=== PATIENT | male | born 1970 | race Caucasian/White ===

== ENCOUNTER 2017-03-28 09:37 | Inpatient (IN) | payer BC ==
[2017-03-28] MEDS ORDERED: SODIUM CHLORIDE 0.9% 1,000 ML IV STA (09:57)
--- NOTE | 2017-03-28 10:00 | ED ---
General Adult HPI - General Chief complaint: Syncope Stated complaint: Syncope Time Seen by Provider: 03/28/17 09:41 Source: patient, EMS, RN notes reviewed Mode of arrival: EMS Limitations: no limitations - History of Present Illness Initial comments: Patient is a pleasant 46-year-old male presenting to the emergency department following syncopal episode. Episode occurred just prior to arrival. Patient was at work. Patient was leaning over working on a part for 7 or 8 minutes. Patient did get up and felt lightheaded and then had a coworker catch him. Patient believes she may have passed out for a second or 2. No injury. Patient is symptom-free at this time. No chest pain. No dyspnea. No confusion. No headache. No weakness. Patient has had some near syncopal episodes previously however has not previously passed out. - Related Data Home Medications Medication Instructions Recorded Confirmed Albuterol Inhaler [Ventolin Hfa 1 - 2 puff INHALATION RT-Q6H PRN 03/28/17 Inhaler] Aspirin 81 mg PO ONCE PRN 03/28/17 03/28/17 Allergies Allergy/AdvReac Type Severity Reaction Status Date / Time Penicillins Allergy Anaphylaxis Verified 03/28/17 09:59 Review of Systems ROS Statement: Those systems with pertinent positive or pertinent negative responses have been documented in the HPI. ROS Other: All systems not noted in ROS Statement are negative. Constitutional: Denies: fever Eyes: Denies: eye pain ENT: Denies: ear pain Respiratory: Denies: cough, dyspnea Cardiovascular: Denies: chest pain Endocrine: Denies: fatigue Gastrointestinal: Denies: abdominal pain Genitourinary: Denies: dysuria Musculoskeletal: Denies: back pain Skin: Denies: rash Neurological: Denies: headache, weakness, paresthesias, confusion Past Medical History Past Medical History: COPD Additional Past Medical History / Comment(s): kidney disease History of Any Multi-Drug Resistant Organisms: None Reported Past Surgical History: No Surgical Hx Reported Past Psychological History: No Psychological Hx Reported Smoking Status: Current every day smoker Past Alcohol Use History: None Reported Past Drug Use History: Marijuana General Exam Limitations: no limitations General appearance: alert, in no apparent distress Head exam: Present: atraumatic Eye exam: Present: normal appearance, PERRL, EOMI. Absent: nystagmus ENT exam: Present: normal oropharynx Neck exam: Present: normal inspection Respiratory exam: Present: normal lung sounds bilaterally Cardiovascular Exam: Present: regular rate, normal rhythm Expanded Peripheral pulses: 2+: Radial (R), Radial (L), Posterior Tibialis (R), Posterior Tibialis (L) GI/Abdominal exam: Present: soft. Absent: tenderness Extremities exam: Present: normal inspection. Absent: pedal edema, calf tenderness Neurological exam: Present: alert, oriented X3, CN II-XII intact. Absent: motor sensory deficit Expanded Neurological exam: Present: protecting the airway Patient oriented to: Present: person, place, time Speech: Present: fluid speech Cranial nerves: EOM's Intact: Normal, Facial Sensation: Normal Sensory exam: Upper Extremity Light Touch: Normal, Lower Extremity Light Touch: Normal Motor strength exam: RUE: 5, LUE: 5, RLE: 5, LLE: 5 Eye Response: (4) open spontaneously Motor Response: (6) obeys commands Verbal Response: (5) oriented Psychiatric exam: Present: normal affect, normal mood Skin exam: Present: normal color Course Vital Signs 03/28/17 03/28/17 03/28/17 09:40 10:45 11:45 Temperature 97 F L Pulse Rate 79 84 78 Respiratory 16 16 16 Rate Blood Pressure 135/73 119/78 124/58 O2 Sat by Pulse 97 97 99 Oximetry EKG Findings - EKG Comments: EKG Findings:: Normal sinus rhythm 76. HI 168. QRS 92. QT 354. QTC 398. Right axis. Normal QRS. No acute ST change. Medical Decision Making - Medical Decision Making Patient reevaluated and symptom-free. Patient and family updated on results and plan. Patient does admit that he does have a history of polycystic kidney disease. Patient also states that there was a question of mass near the kidney previously that was being watched by Dr. Coon however this has not been evaluated in years. Case was discussed in detail with Dr. Main, who will admit for Dr. Escobar. Oncology will be consult. - Lab Data Result diagrams: 03/28/17 09:50 03/28/17 09:50 Lab Results 03/28/17 03/28/17 03/28/17 Range/Units 09:50 09:50 09:50 WBC 26.4 H* (3.8-10.6) k/uL RBC 5.19 (4.30-5.90) m/uL Hgb 15.2 (13.0-17.5) gm/dL Hct 47.0 (39.0-53.0) % MCV 90.7 (80.0-100.0) fL MCH 29.4 (25.0-35.0) pg MCHC 32.4 (31.0-37.0) g/dL RDW 15.9 H (11.5-15.5) % Plt Count 356 (150-450) k/uL Neutrophils % 76 % Lymphocytes % 16 % Monocytes % 5 % Eosinophils % 1 % Basophils % 1 % Neutrophils # 20.2 H (1.3-7.7) k/uL Lymphocytes # 4.2 (1.0-4.8) k/uL Monocytes # 1.3 H (0-1.0) k/uL Eosinophils # 0.3 (0-0.7) k/uL Basophils # 0.1 (0-0.2) k/uL PT (9.0-12.0) sec INR (<1.2) APTT (22.0-30.0) sec D-Dimer (<0.60) mg/L FEU Sodium 141 (137-145) mmol/L Potassium 4.7 (3.5-5.1) mmol/L Chloride 105 (98-107) mmol/L Carbon Dioxide 28 (22-30) mmol/L Anion Gap 8 mmol/L BUN 11 (9-20) mg/dL Creatinine 0.99 (0.66-1.25) mg/dL Est GFR (MDRD) Af Amer >60 (>60 ml/min/1.73 sqM) Est GFR (MDRD) Non-Af >60 (>60 ml/min/1.73 sqM) Glucose 141 H (74-99) mg/dL Calcium 9.9 (8.4-10.2) mg/dL Total Bilirubin 0.8 (0.2-1.3) mg/dL AST 26 (17-59) U/L ALT 33 (21-72) U/L Alkaline Phosphatase 53 (38-126) U/L Total Creatine Kinase 70 (55-170) U/L CK-MB (CK-2) 0.9 (0.0-2.4) ng/mL CK-MB (CK-2) Rel Index 1.3 Troponin I <0.012 (0.000-0.034) ng/mL Total Protein 6.5 (6.3-8.2) g/dL Albumin 4.2 (3.5-5.0) g/dL Urine Color Urine Appearance (Clear) Urine pH (5.0-8.0) Ur Specific [place] (1.001-1.035) Urine Protein (Negative) Urine Glucose (UA) (Negative) Urine Ketones (Negative) Urine Blood (Negative) Urine Nitrite (Negative) Urine Bilirubin (Negative) Urine Urobilinogen (<2.0) mg/dL Ur Leukocyte Esterase (Negative) 03/28/17 03/28/17 Range/Units 09:50 11:15 WBC (3.8-10.6) k/uL RBC (4.30-5.90) m/uL Hgb (13.0-17.5) gm/dL Hct (39.0-53.0) % MCV (80.0-100.0) fL MCH (25.0-35.0) pg MCHC (31.0-37.0) g/dL RDW (11.5-15.5) % Plt Count (150-450) k/uL Neutrophils % % Lymphocytes % % Monocytes % % Eosinophils % % Basophils % % Neutrophils # (1.3-7.7) k/uL Lymphocytes # (1.0-4.8) k/uL Monocytes # (0-1.0) k/uL Eosinophils # (0-0.7) k/uL Basophils # (0-0.2) k/uL PT 9.8 (9.0-12.0) sec INR 1.0 (<1.2) APTT 23.1 (22.0-30.0) sec D-Dimer 0.74 H (<0.60) mg/L FEU Sodium (137-145) mmol/L Potassium (3.5-5.1) mmol/L Chloride (98-107) mmol/L Carbon Dioxide (22-30) mmol/L Anion Gap mmol/L BUN (9-20) mg/dL Creatinine (0.66-1.25) mg/dL Est GFR (MDRD) Af Amer (>60 ml/min/1.73 sqM) Est GFR (MDRD) Non-Af (>60 ml/min/1.73 sqM) Glucose (74-99) mg/dL Calcium (8.4-10.2) mg/dL Total Bilirubin (0.2-1.3) mg/dL AST (17-59) U/L ALT (21-72) U/L Alkaline Phosphatase (38-126) U/L Total Creatine Kinase (55-170) U/L CK-MB (CK-2) (0.0-2.4) ng/mL CK-MB (CK-2) Rel Index Troponin I (0.000-0.034) ng/mL Total Protein (6.3-8.2) g/dL Albumin (3.5-5.0) g/dL Urine Color Yellow Urine Appearance Clear (Clear) Urine pH 6.5 (5.0-8.0) Ur Specific [place] 1.004 (1.001-1.035) Urine Protein Negative (Negative) Urine Glucose (UA) Negative (Negative) Urine Ketones Negative (Negative) Urine Blood Negative (Negative) Urine Nitrite Negative (Negative) Urine Bilirubin Negative (Negative) Urine Urobilinogen <2.0 (<2.0) mg/dL Ur Leukocyte Esterase Negative (Negative) - Radiology Data Radiology results: report reviewed (Computed tomography scan of the brain reveals no acute abnormality. Computed tomography scan of the chest shows no pulmonary embolism. Lungs are clear. There is a retroperitoneal mass.), image reviewed (Chest x-ray has concern for developing right infrahilar infiltrate. Small right effusion.) Disposition Clinical Impression: Syncope, Retroperitoneal mass Disposition: ADMITTED IP TO THIS HOSP Referrals: Abby Escobar MD [Primary Care Provider] - 1-2 days Decision Time: 11:59
[2017-03-28 10:15] LABS: Basophils # (A) 0.1 k/uL (0-0.2); Basophils % (A) 1 %; Eosinophils # (A) 0.3 k/uL (0-0.7); Eosinophils % (A) 1 %; HGB 15.2 gm/dL (13.0-17.5); Lymphocytes # (A) 4.2 k/uL (1.0-4.8); Lymphocytes % (A) 16 %; MCH 29.4 pg (25.0-35.0); MCHC 32.4 g/dL (31.0-37.0); MCV 90.7 fL (80.0-100.0); Mean Platelet Volume 6.6; Monocytes # (A) 1.3 k/uL (0-1.0); Monocytes % (A) 5 %; Neutrophils # (A) 20.2 k/uL (1.3-7.7); Neutrophils % (A) 76 %; Platelet Count 356 k/uL (150-450); RBC 5.19 m/uL (4.30-5.90); RDW 15.9 % (11.5-15.5)
--- NOTE | 2017-03-28 10:22 | CT ---
EXAMINATION TYPE: CT brain wo con DATE OF EXAM: 03/28/2017 COMPARISON: NONE HISTORY: Syncope, dizziness CT DLP: 1036 mGycm. Automated Exposure Control for Dose Reduction was Utilized. TECHNIQUE: CT scan of the head is performed without contrast. FINDINGS: There is no acute intracranial hemorrhage, mass effect, or midline shift identified. The ventricles and sulci are within normal limits in size. The globes are intact. Old fracture deformit y of the lamina Propecia on the left is appreciated. Mild mucosal thickening within the ethmoid sinus es are present. Remaining visualized paranasal sinuses are well aerated. IMPRESSION: No acute intracranial hemorrhage, mass effect, or midline shift is seen. No acute intrac ranial process.
[2017-03-28 10:24] LABS: WBC 26.4 k/uL (3.8-10.6)
--- NOTE | 2017-03-28 10:24 | XR ---
EXAMINATION TYPE: XR chest 2V DATE OF EXAM: 03/28/2017 COMPARISON: NONE HISTORY: Chest pain TECHNIQUE: Frontal and lateral views of the chest are obtained. FINDINGS: Hyperinflation compatible with COPD. Linear densities right mid and lower lung zones may reflect atel ectasis. Increased density right infrahilar region may reflect developing infiltrate. Blunting right costophrenic angle. Small effusions not excluded The cardiac silhouette size is within normal limits. The osseous structures are grossly intact. IMPRESSION: 1. Developing infiltrate right infrahilar region difficult to exclude. Small right-sided pleural eff usion.
[2017-03-28 10:26] LABS: ALT 33 U/L (21-72); AST 26 U/L (17-59); Albumin 4.2 g/dL (3.5-5.0); Alkaline Phosphatase 53 U/L (38-126); Anion Gap 8 mmol/L; Blood Urea Nitrogen 11 mg/dL (9-20); Calcium 9.9 mg/dL (8.4-10.2); Carbon Dioxide 28 mmol/L (22-30); Chloride 105 mmol/L (98-107); Glucose 141 mg/dL (74-99); Potassium 4.7 mmol/L (3.5-5.1); Sodium 141 mmol/L (137-145); Total Bilirubin 0.8 mg/dL (0.2-1.3); Total Protein 6.5 g/dL (6.3-8.2)
[2017-03-28 10:28] LABS: D-Dimer 0.74 mg/L FEU (<0.60); Partial Thromboplastin Time 23.1 sec (22.0-30.0); Prothrombin Time 9.8 sec (9.0-12.0)
[2017-03-28 10:34] LABS: Creatine Kinase 70 U/L (55-170)
[2017-03-28 10:47] LABS: Creatine Kinase MB 0.9 ng/mL (0.0-2.4); Troponin I <0.012 ng/mL (0.000-0.034)
[2017-03-28] MEDS ORDERED: RX INFO: IV CONTRAST WAS GIVEN 1 EACH MISC MISCELLANE PRN (10:54)
[2017-03-28 11:40] LABS: Appearance,Urine Clear (Clear); Bilirubin,Urine Negative (Negative); Blood,Urine Negative (Negative); Color,Urine Yellow; Glucose,Urine (UA) Negative (Negative); Ketones,Urine Negative (Negative); Leukocyte Esterase,Urine Negative (Negative); Nitrite,Urine Negative (Negative); PH, Urine 6.5 (5.0-8.0); Protein,Urine Negative (Negative); Specific Gravity,Urine 1.004 (1.001-1.035); Urobilinogen,Urine <2.0 mg/dL (<2.0)
--- NOTE | 2017-03-28 11:47 | CT ---
EXAMINATION TYPE: CT angio chest DATE OF EXAM: 03/28/2017 COMPARISON: NONE HISTORY: Syncope, elevated d dimer CT DLP: 524 mGycm. Automated Exposure Control for Dose Reduction was Utilized. CONTRAST: CTA scan of the thorax is performed with IV Contrast, patient injected with 100 mL of Omnipaque 350, pulmonary embolism protocol. MIP Images are created on CT scanner and reviewed. FINDINGS: LUNGS: The lungs are grossly clear, there is no concerning parenchymal mass or nodule identified. Ple ural parenchymal scarring is seen on the right as well as posterior apical pleural thickening. Mild p araseptal emphysematous changes are most exaggerated in the lung apices. Multifocal pleural parenchym al scarring is seen on the right. There is no pleural effusion or pneumothorax seen. The tracheobron chial tree is patent. Calcified pleural plaque is seen along the right hemidiaphragm and anterior lat erally of the pleural lining the right middle lobe. MEDIASTINUM: There is satisfactory enhancement of the pulmonary artery and its branches, there is no CT evidence for pulmonary embolism. There are no greater than 1 cm hilar or mediastinal lymph nodes. No cardiomegaly or pericardial effusion is seen. Small diaphragmatic hernia is noted on the right with the diaphragmatic rent measuring 9 mm. OTHER: There is a retroperitoneal soft tissue attenuated mass measuring 3.6 x 4.2 cm in transverse by anterior posterior dimension, incompletely seen on coronal images to assess craniocaudal dimension. This does not appear to be contiguous with the kidney or within the adrenal gland, however the full e xtent is not visualized on this could be exophytically arising from the kidney. Focal sclerosis is se en in the inferior endplate of T9 anteriorly which may be degenerative in nature. IMPRESSION: 1. No evidence of pulmonary embolism. 2. Solid left-sided retroperitoneal mass that is incompletely visualized. Although this appears separ ate from the adrenal gland and likely separate from the kidney this could be exophytically arising fr om the kidney. Further characterization with dynamic contrast enhanced three-phase CT abdomen or MR i s recommended on a nonemergent basis. Considerations are for primary retroperitoneal lesion such as d edifferentiated liposarcoma, malignant fibrous histiocytoma, or given the patient's pleural parenchym al calcifications mesenteric mesothelioma. Additional considerations are for metastasis and lymphoma. However, if this does arise from the kidney differential would change to renal cell carcinoma and on cocytoma. 3. Moderate paraseptal emphysematous changes.
[2017-03-28] MEDS ORDERED: NALOXONE 0.4 MG/ML 1 ML VIAL IV PRN (12:00)
--- NOTE | 2017-03-28 13:18 | P.HPIM ---
History of Present Illness H&P Date: 03/28/17 Chief Complaint: Syncope lightheadedness The patient is a 46-year-old male the long known history of tobacco use, COPD and polycystic kidney disease who presents to the ER with chief complaint of lightheadedness and passing out. apparently the patient was at work and began feeling dizzy and lightheaded. Patient was leaning over working on a part for 7 or 8 minutes. Patient did get up and felt lightheaded and then had a coworker catch him. Patient believes she may have lost consciousness for up to 2 seconds. He denied any chest pain, palpitations or any other precipitating factors. He denies any fall or head trauma, he denies any recent illnesses, denies fevers chills night sweats, denies any weight change or loss of appetite. Apparently his had other similar symptoms but never anything this severe, he does report some associated left vision changes reported to be blurriness. He denies any chest pain or lower extremity swelling. In the ER the patient had a CTA of his chest that was negative for pulmonary embolism, but there is a solid left retroperitoneal mass. The patient is reports that the patient has been poorly compliant with follow-up in Dr. Coon's office where he was supposed to follow-up with over 2 years ago for his polycystic kidney disease. Patient was also noted to have a significant leukocytosis of 26.4 Review of Systems All other 14 (it negative except per HPI Past Medical History Past Medical History: COPD Additional Past Medical History / Comment(s): kidney disease History of Any Multi-Drug Resistant Organisms: None Reported Past Surgical History: No Surgical Hx Reported Past Psychological History: No Psychological Hx Reported Smoking Status: Current every day smoker Past Alcohol Use History: None Reported Past Drug Use History: Marijuana - Past Family History Father Family Medical History: Diabetes Mellitus Additional Family Medical History / Comment(s): "alcoholic" Mother Family Medical History: Congestive Heart Failure (CHF), COPD, Diabetes Mellitus , Renal Disease Additional Family Medical History / Comment(s): "high white count chronic", chronic uti, sleep apnea Sister(s) Family Medical History: Coronary Artery Disease (CAD) Medications and Allergies Home Medications Medication Instructions Recorded Confirmed Type Albuterol Inhaler [Ventolin Hfa 1 - 2 puff INHALATION RT-Q6H PRN 03/28/17 History Inhaler] Aspirin 81 mg PO ONCE PRN 03/28/17 03/28/17 History Allergies Allergy/AdvReac Type Severity Reaction Status Date / Time Penicillins Allergy Anaphylaxis Verified 03/28/17 09:59 Physical Exam Vitals: Vital Signs Temp Pulse Resp BP Pulse Ox 03/28/17 11:45 78 16 124/58 99 03/28/17 10:45 84 16 119/78 97 03/28/17 09:40 97 F L 79 16 135/73 97 Intake and Output 03/27/17 03/28/17 03/28/17 22:59 06:59 14:59 Other: Weight 74.843 kg Patient Weight 03/29/17 06:59 Weight 74.843 kg Constitutional: No acute distress, conversant, pleasant Eyes: Anicteric sclerae, moist conjunctiva, no lid-lag, PERRLA ENMT: NC/AT,Oropharynx clear, no erythema, exudates Neck:Supple, FROM, no masses, or JVD, No carotid bruits; No thyromegaly Lungs: Clear to auscultation, Clear to percussion, Normal respiratory effort, no accessory muscle use Cardiovascular: Heart regular in rate and rhythm, No murmurs, gallops, or rubs no peripheral edema Abdominal: Soft Nontender, nom distended, no guarding, no rebound or rigidity, Normoactive bowel sounds No hepatomegaly, No splenomegaly, No palpable mass No abdominal wall hernia noted Skin: Normal temperature, tone, texture, turgor, No induration No subcutaneous nodules, No rash, lesions, No ulcers Extremities:No digital cyanosis No clubbing, Pedal pulses intact and symmetrical Radial pulses intact and symmetrical Normal gait and station, No calf tenderness Psychiatric: Alert and oriented to person, place and time, Appropriate affect Intact judgement Neuro: Muscles Strength 5/5 in all 4 extremities, Sensation to light touch grossly present throughout, Cranial nerves II-XII grossly intact. No focal sensory deficits Results CBC & Chem 7: 03/28/17 09:50 03/28/17 09:50 Labs: Abnormal Lab Results - Last 24 Hours (Table) 03/28/17 03/28/17 03/28/17 Range/Units 09:50 09:50 09:50 WBC 26.4 H* (3.8-10.6) k/uL RDW 15.9 H (11.5-15.5) % Neutrophils # 20.2 H (1.3-7.7) k/uL Monocytes # 1.3 H (0-1.0) k/uL D-Dimer 0.74 H (<0.60) mg/L FEU Glucose 141 H (74-99) mg/dL Assessment and Plan (1) Syncope Current Visit: Yes Status: Acute Code(s): R55 - SYNCOPE AND COLLAPSE SNOMED Code(s): 767880037 (2) Leukocytosis Current Visit: Yes Status: Acute Code(s): D72.829 - ELEVATED WHITE BLOOD CELL COUNT, UNSPECIFIED SNOMED Code(s): 388681032 (3) COPD (chronic obstructive pulmonary disease) Current Visit: Yes Status: Acute Code(s): J44.9 - CHRONIC OBSTRUCTIVE PULMONARY DISEASE, UNSPECIFIED SNOMED Code(s): 25731232 (4) Retroperitoneal mass Current Visit: Yes Status: Acute Code(s): R19.00 - INTRA-ABD AND PELVIC SWELLING, MASS AND LUMP, UNSP SITE SNOMED Code(s): 78174408 (5) Smoking addiction Current Visit: Yes Status: Acute Code(s): F17.200 - NICOTINE DEPENDENCE, UNSPECIFIED, UNCOMPLICATED SNOMED Code(s): 500996278 (6) Polycystic kidney disease Current Visit: Yes Status: Acute Code(s): Q61.3 - POLYCYSTIC KIDNEY, UNSPECIFIED SNOMED Code(s): 07647015 Plan: The patient is admitted for workup of syncopal episode anticipated greater than 2 midnight stay, as a patient also has a significant pronounced leukocytosis of 26.4 with retroperitoneal mass which is concerning for possible underlying malignancy. Patient does have a history of polycystic kidney disease, we'll consult Dr. Sommers and Dr. Oliveira for further recommendations. He is afebrile without any other signs of sepsis , his urinalysis was negative will order blood cultures, We'll continue his syncope workup by checking orthostatic vital signs, carotid Dopplers and 2-D echocardiogram. Continue to follow the patient' s clinical course
[2017-03-28] MEDS ORDERED: ASPIRIN 81 MG PO PRN (13:19)
[2017-03-28] MEDS ORDERED: ALBUTEROL NEBULIZED 2.5 MG/3 ML INHALATION PRN (13:19)
--- NOTE | 2017-03-28 13:21 | US ---
EXAMINATION TYPE: US carotid duplex BILAT DATE OF EXAM: 03/28/2017 COMPARISON: NONE CLINICAL HISTORY: Pain. Pt states syncope and vision changes EXAM MEASUREMENTS: RIGHT: Peak Systolic Velocity (PSV) cm/sec ----- Right CCA: 112.5 ----- Right ICA: 121.0 ----- Right ECA: 139.8 ICA/CCA ratio: 1.1 RIGHT: End Diastole cm/sec ----- Right CCA: 38.7 ----- Right ICA: 59.6 ----- Right ECA: 21.5 LEFT: Peak Systolic Velocity (PSV) cm/sec ----- Left CCA: 114.5 ----- Left ICA: 116.1 ----- Left ECA: 147.6 ICA/CCA ratio: 1.0 LEFT: End Diastole cm/sec ----- Left CCA: 41.8 ----- Left ICA: 59.6 ----- Left ECA: 25.4 VERTEBRALS (direction of flow): Right Vertebral: Antegrade Left Vertebral: Antegrade Rhythm: Normal IMPRESSION: Slightly elevated velocities bilaterally, however no significant stenosis seen Criteria for Assigning % of Stenosis / Diameter reduction (Estimation based on the indirect measurements of the internal carotid artery velocities (ICA PSV). 1. Normal (no stenosis)=ICA PSV < 125 cm/s: ratio < 2.0: ICA EDV<40 cm/s. 2. Less than 50% stenosis=ICA PSV < 125 cm/s: ratio < 2.0: ICA EDV<40 cm/s. 3. 50 to 69% stenosis=ICA PSV of 125 to 230 cm/s: ration 2.0 ? 4.0: ICA EDV 40-100 cm/s. 4. Greater than 70% stenosis to near occlusion= ICA PSV > 230 cm/s: ratio > 4.0: ICA EDV > 100 cm/s. 5. Near occlusion= ICA PSV velocities may be low or undetectable: variable ratio and ICA EDV. 6. Total occlusion=unable to detect flow.
[2017-03-28] MEDS: NICOTINE 21MG/24HR PATCH TRANSDERM SCH (14:15)
[2017-03-28] MEDS: SODIUM CHLORIDE 0.9% 1,000 ML IV SCH ×2 (15:30→20:58)
[2017-03-28 16:33] LABS: Creatine Kinase 64 U/L (55-170)
[2017-03-28 16:46] LABS: Creatine Kinase MB 0.8 ng/mL (0.0-2.4); Troponin I <0.012 ng/mL (0.000-0.034)
[2017-03-28 17:43] VITALS: BMI 24.0
[2017-03-28] MEDS: ENOXAPARIN 40 MG/0.4 ML SYRINGE SQ SCH (18:59)
[2017-03-28 21:54] LABS: Creatine Kinase 55 U/L (55-170)
[2017-03-28 22:07] LABS: Creatine Kinase MB 0.7 ng/mL (0.0-2.4); Troponin I <0.012 ng/mL (0.000-0.034)
[2017-03-28 23:29] LABS: Glucose,Whole Blood 84 mg/dL (75-99)
[2017-03-29] MEDS: SODIUM CHLORIDE 0.9% 1,000 ML IV SCH ×3 (05:54→20:28)
--- NOTE | 2017-03-29 07:46 | P.GSCN ---
History of Present Illness History of present illness: the patient is a 46-year-old gentleman in the hospital for syncope. During the evaluation a computed tomography scan of the chest was obtained looking for pulmonary embolus and a mass in the retroperitoneum near the left kidney was identified. This mass is about 4 cm. For this reason was asked to see the patient. He has seen the patient in the past for renal cysts. From what I can gather this mass was apparently present several years ago. He is asymptomatic. Is been no blood in the urine. There's been no infections. There is no pain. Unfortunately I do not have access to the old x-rays. Review of Systems - Constitutional Constitutional Comment(s): no nausea vomiting and anorexia. He does have dizziness. He has no dysuria frequency urgency or hematuria. There are no major bowel issues. Past Medical History Past Medical History: COPD Additional Past Medical History / Comment(s): kidney disease History of Any Multi-Drug Resistant Organisms: None Reported Past Surgical History: No Surgical Hx Reported Past Anesthesia/Blood Transfusion Reactions: No Reported Reaction Past Psychological History: No Psychological Hx Reported Smoking Status: Current every day smoker Past Alcohol Use History: None Reported Past Drug Use History: Marijuana - Past Family History Father Family Medical History: Diabetes Mellitus Additional Family Medical History / Comment(s): "alcoholic" Mother Family Medical History: Congestive Heart Failure (CHF), COPD, Diabetes Mellitus , Renal Disease Additional Family Medical History / Comment(s): "high white count chronic", chronic uti, sleep apnea Sister(s) Family Medical History: Coronary Artery Disease (CAD) Medications and Allergies Home Medications Medication Instructions Recorded Confirmed Type Albuterol Inhaler [Ventolin Hfa 1 - 2 puff INHALATION RT-Q6H PRN 03/28/17 History Inhaler] Aspirin 81 mg PO ONCE PRN 03/28/17 03/28/17 History Allergies Allergy/AdvReac Type Severity Reaction Status Date / Time Penicillins Allergy Anaphylaxis Verified 03/28/17 09:59 Surgical - Exam Vital Signs Temp Pulse Resp BP Pulse Ox 97 F L 79 16 135/73 97 03/28/17 09:40 03/28/17 09:40 03/28/17 09:40 03/28/17 09:40 03/28/17 09:40 - General well developed, well nourished, no distress - Eyes PERRL - ENT no hearing loss - Neck trachea midline - Respiratory normal expansion, normal respiratory effort - Cardiovascular Rhythm: regular - Abdomen Abdomen: soft, non tender - Genitourinary normal penis with no external lesions, testicles present - Integumentary no rash - Neurologic normal coordination, normal sensation - Psychiatric oriented to time, oriented to person, oriented to place, speech is normal, memory intact Results - Labs 03/28/17 09:50 03/28/17 09:50 Abnormal Lab Results - Last 24 Hours (Table) 03/28/17 03/28/17 03/28/17 Range/Units 09:50 09:50 09:50 WBC 26.4 H* (3.8-10.6) k/uL RDW 15.9 H (11.5-15.5) % Neutrophils # 20.2 H (1.3-7.7) k/uL Monocytes # 1.3 H (0-1.0) k/uL D-Dimer 0.74 H (<0.60) mg/L FEU Glucose 141 H (74-99) mg/dL Diabetes panel 03/28/17 Range/Units 09:50 Sodium 141 (137-145) mmol/L Potassium 4.7 (3.5-5.1) mmol/L Chloride 105 (98-107) mmol/L Carbon Dioxide 28 (22-30) mmol/L BUN 11 (9-20) mg/dL Creatinine 0.99 (0.66-1.25) mg/dL Glucose 141 H (74-99) mg/dL Calcium 9.9 (8.4-10.2) mg/dL AST 26 (17-59) U/L ALT 33 (21-72) U/L Alkaline Phosphatase 53 (38-126) U/L Total Protein 6.5 (6.3-8.2) g/dL Albumin 4.2 (3.5-5.0) g/dL Calcium panel 03/28/17 Range/Units 09:50 Calcium 9.9 (8.4-10.2) mg/dL Albumin 4.2 (3.5-5.0) g/dL Pituitary panel 03/28/17 Range/Units 09:50 Sodium 141 (137-145) mmol/L Potassium 4.7 (3.5-5.1) mmol/L Chloride 105 (98-107) mmol/L Carbon Dioxide 28 (22-30) mmol/L BUN 11 (9-20) mg/dL Creatinine 0.99 (0.66-1.25) mg/dL Glucose 141 H (74-99) mg/dL Calcium 9.9 (8.4-10.2) mg/dL Adrenal panel 03/28/17 Range/Units 09:50 Sodium 141 (137-145) mmol/L Potassium 4.7 (3.5-5.1) mmol/L Chloride 105 (98-107) mmol/L Carbon Dioxide 28 (22-30) mmol/L BUN 11 (9-20) mg/dL Creatinine 0.99 (0.66-1.25) mg/dL Glucose 141 H (74-99) mg/dL Calcium 9.9 (8.4-10.2) mg/dL Total Bilirubin 0.8 (0.2-1.3) mg/dL AST 26 (17-59) U/L ALT 33 (21-72) U/L Alkaline Phosphatase 53 (38-126) U/L Total Protein 6.5 (6.3-8.2) g/dL Albumin 4.2 (3.5-5.0) g/dL - Imaging CT scan - chest: report reviewed, image reviewed Assessment and Plan Assessment: impression: Left retroperitoneal mass possibly related to the kidney. Possibly a hemorrhagic cyst by history. Recommendations. I will review his chart in the office. We will try to obtain his old CAT scan to compare. Dr. osborne will follow-up with this patient.
--- NOTE | 2017-03-29 09:09 | P.PN ---
Subjective Progress Note Date: 03/29/17 Principal diagnosis: Syncope Denies any shortness of breath no cough no fever no chills. Objective - Vital Signs Vital signs: Vital Signs Temp 97.1 F L 03/29/17 07:44 Pulse 74 03/29/17 08:00 Resp 16 03/29/17 08:00 BP 128/77 03/29/17 07:44 Pulse Ox 100 03/29/17 07:44 Intake & Output 03/28/17 03/29/17 03/29/17 18:59 06:59 18:59 Intake Total 240 600 Balance 240 600 Weight 74 kg 74.4 kg Intake: IV 600 Sodium Chloride 0.9% 1, 600 000 ml @ 120 mls/hr IV . Q8H20M [facility] Rx#:[id number] Oral 240 Other: Voiding Method Toilet Toilet Toilet - Exam gen:alert and oriented lungs:clear to auscultation heart:s1s2 abdomen:soft and depressible,non tender ext:no edema - Labs CBC & Chem 7: 03/28/17 09:50 03/28/17 09:50 Labs: Abnormal Lab Results - Last 24 Hours (Table) 03/28/17 03/28/17 03/28/17 Range/Units 09:50 09:50 09:50 WBC 26.4 H* (3.8-10.6) k/uL RDW 15.9 H (11.5-15.5) % Neutrophils # 20.2 H (1.3-7.7) k/uL Monocytes # 1.3 H (0-1.0) k/uL D-Dimer 0.74 H (<0.60) mg/L FEU Glucose 141 H (74-99) mg/dL Assessment and Plan (1) Syncope Narrative/Plan: Echocardiogram Doppler pending Current Visit: Yes Status: Acute Code(s): R55 - SYNCOPE AND COLLAPSE SNOMED Code(s): 642997506 (2) Leukocytosis Narrative/Plan: Sed rate and CRP pending Chest xray reveals some infiltrates but patient was not symptomatic to suggest pneumonia We'll await repeat labs and then decide on antibiotics Current Visit: Yes Status: Acute Code(s): D72.829 - ELEVATED WHITE BLOOD CELL COUNT, UNSPECIFIED SNOMED Code(s): 315543843 (3) COPD (chronic obstructive pulmonary disease) Narrative/Plan: Stable Current Visit: Yes Status: Acute Code(s): J44.9 - CHRONIC OBSTRUCTIVE PULMONARY DISEASE, UNSPECIFIED SNOMED Code(s): 51477643 (4) Retroperitoneal mass Narrative/Plan: Seems to be cystic mass per urology Current Visit: Yes Status: Acute Code(s): R19.00 - INTRA-ABD AND PELVIC SWELLING, MASS AND LUMP, UNSP SITE SNOMED Code(s): 31129769
[2017-03-29] MEDS: NICOTINE 21MG/24HR PATCH TRANSDERM SCH (09:40)
[2017-03-29] MEDS: ENOXAPARIN 40 MG/0.4 ML SYRINGE SQ SCH (09:47)
[2017-03-29 09:57] LABS: HGB 13.8 gm/dL (13.0-17.5); MCH 29.5 pg (25.0-35.0); MCV 92.1 fL (80.0-100.0); Mean Platelet Volume 6.2; Platelet Count 326 k/uL (150-450); RBC 4.67 m/uL (4.30-5.90); RDW 15.9 % (11.5-15.5); WBC 13.4 k/uL (3.8-10.6)
[2017-03-29 09:58] LABS: Anion Gap 7 mmol/L; Blood Urea Nitrogen 13 mg/dL (9-20); C Reactive Protein 9.2 mg/L (<10.0); Calcium 9.1 mg/dL (8.4-10.2); Carbon Dioxide 26 mmol/L (22-30); Chloride 109 mmol/L (98-107); Glucose 108 mg/dL (74-99); Potassium 4.4 mmol/L (3.5-5.1); Sodium 142 mmol/L (137-145)
[2017-03-29 12:27] LABS: Erythrocyte Sedimentation Rate 2 mm/hr (0-15)
--- NOTE | 2017-03-29 18:06 | ECHOF ---
Referral Reason:Syncope MEASUREMENTS -------- HEIGHT: 175.3 cm WEIGHT: 74.8 kg BP: 127/75 RVIDd: 2.9 cm (< 3.3) IVSd: 1.1 cm (0.6 - 1.1) LVIDd: 5.0 cm (3.9 - 5.3) LVPWd: 1.1 cm (0.6 - 1.1) IVSs: 1.6 cm LVIDs: 3.2 cm LVPWs: 1.4 cm LA Diam: 3.2 cm (2.7 - 3.8) Ao Diam: 2.9 cm (2.0 - 3.7) AV Cusp: 1.9 cm (1.5 - 2.6) LA Diam: 3.2 cm (2.7 - 3.8) EPSS: 0.5 cm MV E Rodrigo: 0.87 m/s MV DecT: 172 ms MV A Rodrigo: 0.94 m/s MV E/A Ratio: 0.93 RAP: 5.00 mmHg RVSP: 29.54 mmHg MV EF SLOPE: 96.08 mm/s (70 - 150) MV EXCURSION: 2.11 cm (> 18.000) FINDINGS -------- Sinus rhythm. This was a technically good study. LV size, wall thickness and systolic function are normal, with an EF greater than 55%. The left aure tricular size is normal. The right ventricle is normal in size. The left atrial size is normal. The right atrial size is normal. The aortic valve is trileaflet, and appears structurally normal. No aortic stenosis or regurgitation. The mitral valve is normal. Mild mitral regurgitation is present. Mild tricuspid regurgitation present. There is no evidence of pulmonary hypertension. The right v entricular systolic pressure, as measured by Doppler, is 29.54mmHg. Trace/mild (physiologic) pulmonic regurgitation. The aortic root size is normal. There is no pericardial effusion. CONCLUSIONS -------- 1. Sinus rhythm. 2. LV size, wall thickness and systolic function are normal, with an EF greater than 55%. 3. The left ventricular size is normal. 4. The left atrial size is normal. 5. The aortic valve is trileaflet, and appears structurally normal. No aortic stenosis or regurgitati on. 6. Mild mitral regurgitation is present. 7. Mild tricuspid regurgitation present. 8. There is no evidence of pulmonary hypertension. 9. Trace/mild (physiologic) pulmonic regurgitation. 10. The aortic root size is normal. 11. There is no pericardial effusion. [employer]ISHER HELPER: Carrie Silver RDCS
--- NOTE | 2017-03-29 23:14 | P.PN ---
Subjective Progress Note Date: 03/29/17 consult was placed to evaluate for possible retroperitoneal mass and leukocytosis. Patient's chart and imaging studies were reviewed, and case discussed with the admitting service. Patient has been followed by urology and according to their note, this mass is likely a chronic finding and felt to be an old hemorrhagic cyst. The leukocytosis appears to be reactive. Therefore at this time does not appear to be an indication for oncology evaluation. We will await urology input, after they have reviewed the patient's previous imaging. If this is noted to be a new finding, then oncology consultation can be initiated. Objective - Vital Signs Vital signs: Vital Signs Temp 98.8 F 03/29/17 20:21 Pulse 67 03/29/17 20:21 Resp 16 03/29/17 20:21 BP 124/70 03/29/17 20:21 Pulse Ox 96 03/29/17 20:21 Intake & Output 03/29/17 03/29/17 03/30/17 06:59 18:59 06:59 Intake Total 600 822 120 Output Total 1 Balance 600 822 119 Weight 74.4 kg Intake: IV 600 120 Sodium Chloride 0.9% 1, 600 120 000 ml @ 120 mls/hr IV . Q8H20M [facility] Rx#:[id number] Oral 822 Output: Urine 1 Other: Voiding Method Toilet Toilet Toilet # Voids 1 - Labs CBC & Chem 7: 03/29/17 09:13 03/29/17 09:13 Labs: Abnormal Lab Results - Last 24 Hours (Table) 03/29/17 03/29/17 Range/Units 09:13 09:13 WBC 13.4 H (3.8-10.6) k/uL RDW 15.9 H (11.5-15.5) % Chloride 109 H (98-107) mmol/L Glucose 108 H (74-99) mg/dL Microbiology - Last 24 Hours (Table) 03/28/17 12:09 Blood Culture - Preliminary Blood No Growth after 24 hours
[2017-03-30] MEDS: SODIUM CHLORIDE 0.9% 1,000 ML IV SCH (06:11)
[2017-03-30 06:41] LABS: HCT 44.1 % (39.0-53.0); HGB 13.9 gm/dL (13.0-17.5); MCH 28.6 pg (25.0-35.0); MCHC 31.6 g/dL (31.0-37.0); MCV 90.6 fL (80.0-100.0); Mean Platelet Volume 6.5; Platelet Count 327 k/uL (150-450); RBC 4.86 m/uL (4.30-5.90); RDW 15.7 % (11.5-15.5); WBC 15.4 k/uL (3.8-10.6)
[2017-03-30 06:54] LABS: Anion Gap 7 mmol/L; Blood Urea Nitrogen 14 mg/dL (9-20); Calcium 9.4 mg/dL (8.4-10.2); Carbon Dioxide 26 mmol/L (22-30); Chloride 108 mmol/L (98-107); Glucose 83 mg/dL (74-99); Potassium 4.4 mmol/L (3.5-5.1); Sodium 141 mmol/L (137-145)
[2017-03-30] MEDS: NICOTINE 21MG/24HR PATCH TRANSDERM SCH (07:58)
[2017-03-30] MEDS: ENOXAPARIN 40 MG/0.4 ML SYRINGE SQ SCH (07:58)
[2017-03-30 10:17] VITALS: BP 119/66; PULSE 62; RESP 18; TEMP 98.3
--- NOTE | 2017-03-30 10:19 | P.DS ---
Providers Date of admission: 03/28/17 12:00 Expected date of discharge: 03/30/17 Attending physician: Pepe Main MD Consults: 03/28/17 12:01 Consult Physician Urgent Consulting Provider: Jack Katz Consult Reason/Comments: Retroperitoneal mass Do you want consulting provider notified?: Yes 03/28/17 12:02 Consult Physician Urgent Consulting Provider: Wilder Oliveira Consult Reason/Comments: Retroperitoneal mass and leukocytosis Do you want consulting provider notified?: Yes Primary care physician: Abby Escobar MD - Discharge Diagnosis(es) (1) Syncope Current Visit: Yes Status: Acute (2) Leukocytosis Current Visit: Yes Status: Acute (3) COPD (chronic obstructive pulmonary disease) Current Visit: Yes Status: Acute (4) Retroperitoneal mass Current Visit: Yes Status: Acute Hospital Course: 46-year-old male that was admitted with symptoms of syncope. Upon evaluation patient was found to have a retroperitoneal mass. This was evaluated by Dr. Lowry and Dr. Dietrich, they have been evaluating this as an outpatient. Cells to be a cystic mass which they have seen. Patient will follow-up with Dr. Dietrich as an outpatient. Workup for syncope patient is echo which was normal carotids showed no stenosis. Noted on telemetry to suggest any arrhythmia that would cause. gen:alert and oriented lungs:clear to auscultation heart:s1s2 abdomen:soft and depressible,non tender ext:no edema Discharge time 35 minutes Patient Condition at Discharge: Stable Plan - Discharge Summary Discharge Rx Participant: No New Discharge Prescriptions: Continue Aspirin 81 mg PO ONCE PRN PRN Reason: Chest Pain Albuterol Inhaler [Ventolin Hfa Inhaler] 1 - 2 puff INHALATION RT-Q6H PRN PRN Reason: sob Discharge Medication List Albuterol Inhaler [Ventolin Hfa Inhaler] 1 - 2 puff INHALATION RT-Q6H PRN [History] Aspirin 81 mg PO ONCE PRN 03/28/17 [History] Follow up Appointment(s)/Referral(s): Abby Escobar MD [Primary Care Provider] - 1-2 days Asad Win MD [REFERRING] - 1 Week
== END 2017-03-30 12:21 | disposition home or self-care (01) | DRG 312 ==
LOC: EC 09:37 → 6SEL 12:00
PROVIDERS: ADMIT Family Medicine; ATTEND Family Medicine
DX: R55 Syncope and collapse (principal); Q61.3 Polycystic kidney, unspecified; J44.9 Chronic obstructive pulmonary disease, unspecified; F17.200 Nicotine dependence, unspecified, uncomplicated; R19.00 Intra-abdominal and pelvic swelling, mass and lump, unspecified site; N28.9 Disorder of kidney and ureter, unspecified; Z82.49 Family history of ischemic heart disease and other diseases of the circulatory system; Z79.899 Other long term (current) drug therapy; Z79.82 Long term (current) use of aspirin; Z83.3 Family history of diabetes mellitus; Z81.1 Family history of alcohol abuse and dependence; Z91.19 Patient's noncompliance with other medical treatment and regimen; Z88.0 Allergy status to penicillin
CPT/HCPCS: 36415; 70450; 71046; 71275; 80048; 80053; 81003; 82550; 82553; 83605; 84484; 85025; 85027; 85379; 85610; 85652; 85730; 86140; 87040; 93005; 93306; 93880; 96360; 96361; 99285

== ENCOUNTER 2017-04-06 19:01 | Emergency (ER) | payer BC, OTHER ==
[2017-04-06 19:14] VITALS: RESP 16
[2017-04-06] MEDS ORDERED: RX INFO: IV CONTRAST WAS GIVEN 1 EACH MISC MISCELLANE PRN (19:38)
[2017-04-06] MEDS ORDERED: MORPHINE SULFATE 4 MG/ML SYRINGE IVP STA ×2 (19:42→21:16)
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
[2017-04-06 20:00] LABS: Basophils # (A) 0.1 k/uL (0-0.2); Basophils % (A) 1 %; Eosinophils # (A) 0.2 k/uL (0-0.7); Eosinophils % (A) 1 %; HCT 49.1 % (39.0-53.0); HGB 15.3 gm/dL (13.0-17.5); Lymphocytes # (A) 4.7 k/uL (1.0-4.8); Lymphocytes % (A) 26 %; MCH 28.7 pg (25.0-35.0); MCHC 31.3 g/dL (31.0-37.0); MCV 91.8 fL (80.0-100.0); Mean Platelet Volume 6.1; Monocytes # (A) 1.2 k/uL (0-1.0); Monocytes % (A) 7 %; Neutrophils % (A) 65 %; Platelet Count 371 k/uL (150-450); RBC 5.35 m/uL (4.30-5.90); RDW 15.9 % (11.5-15.5); WBC 18.4 k/uL (3.8-10.6)
[2017-04-06 20:10] LABS: ALT 38 U/L (21-72); AST 35 U/L (17-59); Albumin 4.8 g/dL (3.5-5.0); Alkaline Phosphatase 63 U/L (38-126); Anion Gap 10 mmol/L; Blood Urea Nitrogen 12 mg/dL (9-20); Calcium 10.5 mg/dL (8.4-10.2); Carbon Dioxide 27 mmol/L (22-30); Chloride 105 mmol/L (98-107); Glucose 108 mg/dL (74-99); Potassium 4.6 mmol/L (3.5-5.1); Sodium 142 mmol/L (137-145); Total Bilirubin 0.6 mg/dL (0.2-1.3); Total Protein 7.5 g/dL (6.3-8.2)
[2017-04-06 20:12] LABS: Partial Thromboplastin Time 23.6 sec (22.0-30.0); Prothrombin Time 9.5 sec (9.0-12.0)
[2017-04-06 20:21] LABS: Creatine Kinase 282 U/L (55-170)
[2017-04-06 20:33] LABS: Creatine Kinase MB 1.9 ng/mL (0.0-2.4); Troponin I <0.012 ng/mL (0.000-0.034)
[2017-04-06 20:35] LABS: Appearance,Urine Clear (Clear); Bilirubin,Urine Negative (Negative); Blood,Urine Negative (Negative); Color,Urine Yellow; Glucose,Urine (UA) Negative (Negative); Ketones,Urine Negative (Negative); Leukocyte Esterase,Urine Negative (Negative); Nitrite,Urine Negative (Negative); Protein,Urine Negative (Negative); Specific Gravity,Urine 1.005 (1.001-1.035); Urobilinogen,Urine <2.0 mg/dL (<2.0)
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
--- NOTE | 2017-04-06 20:40 | XR ---
EXAMINATION TYPE: XR knee complete RT DATE OF EXAM: 04/06/2017 COMPARISON: NONE HISTORY: Knee pain TECHNIQUE: 3 views FINDINGS: I see no fracture nor dislocation. Joint spaces are normal. There is no sign of knee joint effusion. IMPRESSION: Negative right knee exam.
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
[2017-04-06] MEDS ORDERED: KETOROLAC 30 MG/ML 1 ML VIAL IVP STA (21:16)
[2017-04-06 21:51] VITALS: BP 133/80; PULSE 73; TEMP 97.9
== END 2017-04-06 21:51 | disposition home or self-care (01) ==
LOC: EC 19:01
DX: S22.32XA Fracture of one rib, left side, initial encounter for closed fracture (principal); S80.01XA Contusion of right knee, initial encounter; S00.03XA Contusion of scalp, initial encounter; I49.8 Other specified cardiac arrhythmias; R19.00 Intra-abdominal and pelvic swelling, mass and lump, unspecified site; D72.829 Elevated white blood cell count, unspecified; R10.9 Unspecified abdominal pain; M25.512 Pain in left shoulder; F17.200 Nicotine dependence, unspecified, uncomplicated; Z88.0 Allergy status to penicillin; V49.49XA Driver injured in collision with other motor vehicles in traffic accident, initial encounter; Y92.410 Unspecified street and highway as the place of occurrence of the external cause
CPT/HCPCS: 36415; 93005; 80053; 82550; 82553; 84484; 85025; 85610; 85730; 81003; 73562; 72125; 70450; 71260; 74177; 99285; 96374; 96375; 96376; J2270; J1885; Q9967

== ENCOUNTER → 2017-04-20 | Outpatient (CLI) | payer OTHER, BC ==
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
== END | disposition home or self-care (01) ==
LOC: RADXRMAIN 11:55
PROVIDERS: ATTEND Family Medicine
DX: M54.6 Pain in thoracic spine (principal); V89.2XXA Person injured in unspecified motor-vehicle accident, traffic, initial encounter
CPT/HCPCS: 72072

== ENCOUNTER 2021-04-12 11:02 | Inpatient (IN) | payer BC, OTHER ==
[2021-04-12] MEDS ORDERED: ACETAMINOPHEN TAB 500 MG TAB PO STA (14:08)
--- NOTE | 2021-04-12 14:08 | ED ---
General Adult HPI - General Chief complaint: Abdominal Pain Stated complaint: Trouble/bloody urinating, Body Aches Time Seen by Provider: 04/12/21 13:41 Source: patient Mode of arrival: ambulatory Limitations: no limitations - History of Present Illness Initial comments: Dictation was produced using [employer] dictation software. please excuse any gram matical, word or spelling errors. Chief Complaint: Patient is a 50-year-old male presents emergency department for abdominal pain History of Present Illness: 50-year-old male presents emergency department for several days of abdominal pain. He also has associated body aches and fever. States the abdomen hurts especially in the lower abdominal area. Patient still has not been passing gas. Has been having decreased bowel movements. He has been nauseated but no vomiting. Patient states he has diffuse body aches. He has a history of COPD. She regular every day smoker. Patient also states he has right groin and right testicular pain that has been acutely worsening. The ROS documented in this emergency department record has been reviewed and confirmed by me. Those systems with pertinent positive or negative responses have been documented in the HPI. All other systems are other negative and/or noncontributory. PHYSICAL EXAM: General Impression: Alert and oriented x3, not in acute distress HEENT: Normocephalic atraumatic, extra-ocular movements intact, pupils equal and reactive to light bilaterally, mucous membranes moist. Cardiovascular: Heart regular rate and rhythm Chest: Able to complete full sentences, no retractions, no tachypnea, diffuse lung wheezing with auscultation of the lungs Abdomen: abdomen soft, diffuse tenderness with palpatory inguinal mass in the right inguinal area worse with Valsalva nonreducible, non-distended, no organomegaly exam: There is exquisite testicular tenderness to the right testicle with some mild tenderness over the superior posterior pole Musculoskeletal: Pulses present and equal in all extremities, no peripheral edema Motor: no focal deficits noted Neurological: CN II-XII grossly intact, no focal motor or sensory deficits noted Skin: Intact with no visualized rashes Psych: Normal affect and mood ED course: 50-year-old male presents emergency Department with abdominal pain, right testicular pain, diffuse myalgias. Vital signs upon arrival shows temperature 101.2, heart rate 108, rest of vital signs within acceptable limits. Laboratory evaluation obtained. Leukocytosis of 45.9 39.7 neutrophils. Metabolic panel is within acceptable limits. Renal markers are normal. Urinalysis shows greater then 182 white blood cells that is nitrite positive. Patient reevaluated at bedside states that he does have unprotected anal sexual intercourse with his significant other. Patient denies any chance of having a sexual transmitted disease. Clinical presentation concerning for epidymo-orchit is. Computed tomography scan abdomen and pelvis shows inflammatory changes mainly surrounding the asymmetrically larger right seminal vesicle. Ultrasound of the scrotum shows unremarkable testicles there is appear to be mild symmetrical hyperemia of the epididymis bilaterally. Given patient's yair vated leukocytosis and pyrexia he'll be admitted for IV antibiotics and further medical monitoring. - Related Data Home Medications Medication Instructions Recorded Confirmed No Known Home Medications 04/12/21 04/12/21 Allergies Allergy/AdvReac Type Severity Reaction Status Date / Time amoxicillin Allergy Anaphylaxis Verified 04/12/21 15:39 Penicillins Allergy Anaphylaxis Verified 04/12/21 15:39 ZUCCHINI Allergy Anaphylaxis Uncoded 04/12/21 15:39 Review of Systems ROS Statement: Those systems with pertinent positive or pertinent negative responses have been documented in the HPI. ROS Other: All systems not noted in ROS Statement are negative. Past Medical History Past Medical History: COPD Additional Past Medical History / Comment(s): kidney disease,syncopal episode. History of Any Multi-Drug Resistant Organisms: None Reported Past Surgical History: No Surgical Hx Reported Past Anesthesia/Blood Transfusion Reactions: No Reported Reaction Past Psychological History: No Psychological Hx Reported Smoking Status: Current every day smoker Past Alcohol Use History: None Reported Past Drug Use History: Marijuana - Past Family History Father Family Medical History: Diabetes Mellitus Additional Family Medical History / Comment(s): "alcoholic" Mother Family Medical History: Congestive Heart Failure (CHF), COPD, Diabetes Mellitus, Renal Disease Additional Family Medical History / Comment(s): "high white count chronic",chronic uti, sleep apnea Sister(s) Family Medical History: Coronary Artery Disease (CAD) General Exam Limitations: no limitations Course Vital Signs 04/12/21 04/12/21 11:28 21:00 Temperature 101.2 F H 98.8 F Pulse Rate 108 H 107 H Respiratory 20 18 Rate Blood Pressure 147/72 138/74 O2 Sat by Pulse 99 97 Oximetry Medical Decision Making - Lab Data Result diagrams: 04/14/21 03:17 04/14/21 03:17 Lab Results 04/12/21 04/12/21 04/12/21 Range/Units 14:00 14:00 14:07 WBC 45.9 H (3.8-10.6) k/uL RBC 5.35 (4.30-5.90) m/uL Hgb 15.3 (13.0-17.5) gm/dL Hct 48.3 (39.0-53.0) % MCV 90.1 (80.0-100.0) fL MCH 28.5 (25.0-35.0) pg MCHC 31.6 (31.0-37.0) g/dL RDW 15.7 H (11.5-15.5) % Plt Count 434 (150-450) k/uL MPV 6.8 Neutrophils % 86 % Lymphocytes % 6 % Monocytes % 5 % Eosinophils % 0 % Basophils % 1 % Neutrophils # 39.7 H (1.3-7.7) k/uL Lymphocytes # 2.7 (1.0-4.8) k/uL Monocytes # 2.4 H (0-1.0) k/uL Eosinophils # 0.2 (0-0.7) k/uL Basophils # 0.4 H (0-0.2) k/uL Manual Slide Review Performed Toxic Granulation Present RBC Morphology Normal Sodium 132 L (137-145) mmol/L Potassium 4.4 (3.5-5.1) mmol/L Chloride 99 (98-107) mmol/L Carbon Dioxide 23 (22-30) mmol/L Anion Gap 10 mmol/L BUN 14 (9-20) mg/dL Creatinine 0.89 (0.66-1.25) mg/dL Est GFR (CKD-EPI)AfAm >90 (>60 ml/min/1.73 sqM) Est GFR (CKD-EPI)NonAf >90 (>60 ml/min/1.73 sqM) Glucose 122 H (74-99) mg/dL Plasma Lactic Acid Ross (0.7-2.0) mmol/L Calcium 9.6 (8.4-10.2) mg/dL Total Bilirubin 1.5 H (0.2-1.3) mg/dL AST 23 (17-59) U/L ALT 18 (4-49) U/L Alkaline Phosphatase 79 (38-126) U/L Creatine Kinase 39 L (55-170) U/L Total Protein 6.7 (6.3-8.2) g/dL Albumin 3.9 (3.5-5.0) g/dL Lipase 41 (23-300) U/L Urine Color Yellow Urine Appearance Cloudy (Clear) Urine pH 5.5 (5.0-8.0) Ur Specific [place] 1.017 (1.001-1.035) Urine Protein 1+ H (Negative) Urine Glucose (UA) Negative (Negative) Urine Ketones 1+ H (Negative) Urine Blood Large H (Negative) Urine Nitrite Positive (Negative) Urine Bilirubin Negative (Negative) Urine Urobilinogen <2.0 (<2.0) mg/dL Ur Leukocyte Esterase Large H (Negative) Urine RBC 60 H (0-5) /hpf Urine WBC >182 H (0-5) /hpf Urine WBC Clumps Many H (None) /hpf Ur Squamous Epith Cells <1 (0-4) /hpf Urine Bacteria Occasional H (None) /hpf Urine Mucus Rare H (None) /hpf Influenza Type A (PCR) (Not Detectd) Influenza Type B (PCR) (Not Detectd) RSV (PCR) (Not Detectd) SARS-CoV-2 (PCR) (Not Detectd) 04/12/21 04/12/21 Range/Units 14:14 15:30 WBC (3.8-10.6) k/uL RBC (4.30-5.90) m/uL Hgb (13.0-17.5) gm/dL Hct (39.0-53.0) % MCV (80.0-100.0) fL MCH (25.0-35.0) pg MCHC (31.0-37.0) g/dL RDW (11.5-15.5) % Plt Count (150-450) k/uL MPV Neutrophils % % Lymphocytes % % Monocytes % % Eosinophils % % Basophils % % Neutrophils # (1.3-7.7) k/uL Lymphocytes # (1.0-4.8) k/uL Monocytes # (0-1.0) k/uL Eosinophils # (0-0.7) k/uL Basophils # (0-0.2) k/uL Manual Slide Review Toxic Granulation RBC Morphology Sodium (137-145) mmol/L Potassium (3.5-5.1) mmol/L Chloride (98-107) mmol/L Carbon Dioxide (22-30) mmol/L Anion Gap mmol/L BUN (9-20) mg/dL Creatinine (0.66-1.25) mg/dL Est GFR (CKD-EPI)AfAm (>60 ml/min/1.73 sqM) Est GFR (CKD-EPI)NonAf (>60 ml/min/1.73 sqM) Glucose (74-99) mg/dL Plasma Lactic Acid Ross 0.8 (0.7-2.0) mmol/L Calcium (8.4-10.2) mg/dL Total Bilirubin (0.2-1.3) mg/dL AST (17-59) U/L ALT (4-49) U/L Alkaline Phosphatase (38-126) U/L Creatine Kinase (55-170) U/L Total Protein (6.3-8.2) g/dL Albumin (3.5-5.0) g/dL Lipase (23-300) U/L Urine Color Urine Appearance (Clear) Urine pH (5.0-8.0) Ur Specific [place] (1.001-1.035) Urine Protein (Negative) Urine Glucose (UA) (Negative) Urine Ketones (Negative) Urine Blood (Negative) Urine Nitrite (Negative) Urine Bilirubin (Negative) Urine Urobilinogen (<2.0) mg/dL Ur Leukocyte Esterase (Negative) Urine RBC (0-5) /hpf Urine WBC (0-5) /hpf Urine WBC Clumps (None) /hpf Ur Squamous Epith Cells (0-4) /hpf Urine Bacteria (None) /hpf Urine Mucus (None) /hpf Influenza Type A (PCR) Not Detected (Not Detectd) Influenza Type B (PCR) Not Detected (Not Detectd) RSV (PCR) Not Detected (Not Detectd) SARS-CoV-2 (PCR) Not Detected (Not Detectd) Disposition Clinical Impression: Epididymo-orchitis Disposition: ADMITTED IP TO THIS HOSP Condition: Fair
[2021-04-12 14:26] LABS: Basophils # (A) 0.4 k/uL (0-0.2); Basophils % (A) 1 %; Eosinophils # (A) 0.2 k/uL (0-0.7); Eosinophils % (A) 0 %; HCT 48.3 % (39.0-53.0); HGB 15.3 gm/dL (13.0-17.5); Lymphocytes # (A) 2.7 k/uL (1.0-4.8); Lymphocytes % (A) 6 %; MCH 28.5 pg (25.0-35.0); MCHC 31.6 g/dL (31.0-37.0); MCV 90.1 fL (80.0-100.0); Mean Platelet Volume 6.8; Monocytes # (A) 2.4 k/uL (0-1.0); Monocytes % (A) 5 %; Neutrophils # (A) 39.7 k/uL (1.3-7.7); Neutrophils % (A) 86 %; Platelet Count 434 k/uL (150-450); RBC 5.35 m/uL (4.30-5.90); RDW 15.7 % (11.5-15.5); WBC 45.9 k/uL (3.8-10.6)
[2021-04-12 14:31] LABS: ALT 18 U/L (4-49); AST 23 U/L (17-59); African American GFR (CKD) >90 (>60 ml/min/1.73 sqM); Albumin 3.9 g/dL (3.5-5.0); Alkaline Phosphatase 79 U/L (38-126); Anion Gap 10 mmol/L; Blood Urea Nitrogen 14 mg/dL (9-20); Calcium 9.6 mg/dL (8.4-10.2); Carbon Dioxide 23 mmol/L (22-30); Chloride 99 mmol/L (98-107); Creatine Kinase 39 U/L (55-170); Glucose 122 mg/dL (74-99); Lipase 41 U/L (23-300); Non-African American GFR(CKD) >90 (>60 ml/min/1.73 sqM); Potassium 4.4 mmol/L (3.5-5.1); Sodium 132 mmol/L (137-145); Total Bilirubin 1.5 mg/dL (0.2-1.3); Total Protein 6.7 g/dL (6.3-8.2)
[2021-04-12 14:45] LABS: Appearance,Urine Cloudy (Clear); Bacteria,Urine Occasional /hpf; Bilirubin,Urine Negative (Negative); Blood,Urine Large (Negative); Color,Urine Yellow; Glucose,Urine (UA) Negative (Negative); Ketones,Urine 1+ (Negative); Leukocyte Esterase,Urine Large (Negative); Mucus,Urine Rare /hpf; Nitrite,Urine Positive (Negative); PH, Urine 5.5 (5.0-8.0); Protein,Urine 1+ (Negative); RBC,Urine 60 /hpf (0-5); Specific Gravity,Urine 1.017 (1.001-1.035); Squamous Epithelial Cell,Urine <1 /hpf (0-4); Urobilinogen,Urine <2.0 mg/dL (<2.0); WBC,Urine >182 /hpf (0-5)
[2021-04-12] MEDS ORDERED: LEVOFLOXACIN 750MG-D5W PMX 750 MG in DEXTROSE/WATER 1 150ML.BAG IVPB STA (14:55)
[2021-04-12 15:15] LABS: RBC Morphology Normal; Toxic Granulation Present
[2021-04-12 15:34] LABS: Influenza A Not Detected (Not Detectd); Influenza B Not Detected (Not Detectd)
--- NOTE | 2021-04-12 15:36 | CT ---
EXAMINATION TYPE: CT abdomen pelvis w con DATE OF EXAM: 04/12/2021 COMPARISON: CT dated 04/06/2017 HISTORY: Right inguinal pain. Low grade fever. Incarcerated hernia. CT DLP: 959.8 mGycm Automated exposure control for dose reduction was used. TECHNIQUE: Helical acquisition of images was performed from the lung bases through the pelvis. CONTRAST: Performed without Oral Contrast and with IV Contrast, patient injected with 100 mL of Isovue 300. FINDINGS: Asymmetrically enlarged right seminal vesicle demonstrating hypodense texture and significant surroun ding fat stranding. The prostate is also slightly enlarged with hypodense parenchyma suggestive of po ssible acute inflammatory changes. Fat stranding is seen in the pelvis surrounding the posterior aspe ct of the urinary bladder, the prostate, the seminal vesicles and extending posteriorly surrounding t he mesorectal fascia. No marginally enhancing collection or definite abscess formation. No definite hepatic focal lesion. Unremarkable gallbladder, spleen, pancreas and adrenals. Bilateral renal cysts without suspicious features. Hyperdense exophytic lesions arising from the upper and lowe r poles of the left kidney possibly representing hemorrhagic cysts, for correlation with elective ult rasound results. Unremarkable nondistended stomach, duodenum and small bowel. Wall thickening of the rectum, possibly reactive. Scattered uncomplicated colonic diverticulosis. Normal appendix.. Bilateral fat-containing inguinal h ernias, larger on the left side. No bowel seen within the hernias. Fat-containing umbilical hernia. N o progressive lymphadenopathy or sizable ascites. Scattered arterial atherosclerotic calcifications. Bilateral basal pulmonary peripheral reticulations more on the right side. No aggressive bone lesion. IMPRESSION: Acute inflammatory changes are seen in the pelvis mainly surrounding the asymmetrically enlarged righ t seminal vesicle. This could be related to acute inflammatory/infectious process of the right semina l vesicle. Associated cystitis or prostatitis cannot be excluded. Recommend clinical correlation and further workup. Other incidental findings as described above.
[2021-04-12] MEDS ORDERED: NALOXONE 0.4 MG/ML 1 ML VIAL IV PRN (15:52)
[2021-04-12] MEDS ORDERED: ACETAMINOPHEN TAB 325 MG TAB PO PRN (15:52)
--- NOTE | 2021-04-12 16:23 | US ---
EXAMINATION TYPE: US scrotum with doppler. Grayscale and color Doppler Duplex imaging performed of t he scrotum. DATE OF EXAM: 04/12/2021 COMPARISON: None available CLINICAL HISTORY: Testicular pain. EXAM MEASUREMENTS: TESTICLES: Right Testicle: 4.3 x 2.3 x 2.7 cm Left Testicle: 4.0 x 2.7 x 2.3 cm -Hyperechoic focus seen within left testicle: 0.08 x 0.1 x 0.08 cm. EPIDIDYMIS HEAD: Right Epididymis: 1.1 x 1.5 x 1.1 cm Left Epididymis: 0.8 x 0.8 x 0.7 cm Prominent vascularity seen within bilateral epididymis. Doppler performed to assess for testicular vascularity; bilateral color flow and waveforms are seen. Presence of hydroceles: Not seen. Presence of varicoceles: Vessels on right measure up to 2.2 mm. Vessels on left appear more prominen t and measure 3 mm. IMPRESSION: Unremarkable testicles with no evidence of testicular torsion or suspicious lesion. Mild symmetrical hyperemia of the epididymis bilaterally, probably insignificant, please correlate clinically. No hydr ocele or definite varicocele bilaterally.
[2021-04-12] MEDS ORDERED: HYDROmorphone 1 MG/ML 1 ML SYRINGE IVP PRN (18:22)
[2021-04-12] MEDS ORDERED: ALPRAZolam 0.25 MG TAB PO PRN (18:23)
[2021-04-12] MEDS ORDERED: TEMAZEPAM 15 MG CAP PO PRN (18:23)
--- NOTE | 2021-04-12 18:55 | HP ---
HISTORY AND PHYSICAL CHIEF COMPLAINTS: Pain and swelling of the right testicle, fever and weakness and abdominal discomfort. HISTORY OF PRESENT ILLNESS: This 50-year-old gentleman with a past medical history of COPD, nephrolithiasis and polycystic kidney disease, being followed by Urology, is complaining of significant pain and swelling of the right scrotum, abdominal pain, fever, generalized weakness. The patient came to [facility]. Patient was found to have significant right epididymo-orchitis and patient was admitted for further evaluation and treatment. PAST MEDICAL HISTORY: COPD, nephrolithiasis, syncopal episode. MEDICATIONS PRIOR TO ADMISSION: None. ALLERGIES: AMOXICILLIN, PENICILLIN. FAMILY HISTORY: History of diabetes mellitus. SOCIAL HISTORY: Smoking. THC. REVIEW OF SYSTEMS: Fourteen-point review of systems negative except as mentioned earlier. PHYSICAL EXAMINATION: Pulse is 108, blood pressure 147/72, respiration 20, temperature 101.2. HEENT: Conjunctivae normal. NECK: No jugular venous distention. CARDIOVASCULAR: S1, S2 muffled. RESPIRATION: Breath sounds diminished at the bases. No rhonchi. No crackles. ABDOMEN: Soft, nontender. EXAMINATION OF EXTERNAL GENITALIA: Significant pain and swelling and tenderness and erythema of the right testicle and right epididymo-orchitis. Left varicocele present. LEGS: No edema. No swelling. NERVOUS SYSTEM: No focal deficit. SKIN: No ulcer, rash, bleeding. JOINTS: No active deforming arthropathy. LABS: WBC 45.1, sodium 132. CT reviwed personally ASSESSMENT: 1. Acute right epididymo-orchitisand acute prostatits with sepsis, present on admission. 2. Leukocytosis. 3. Hyponatremia. 4. History of polycystic kidney disease. 5. Chronic obstructive pulmonary disease. 6. History of nephrolithiasis. RECOMMENDATIONS AND DISCUSSION: In this 50-year-old gentleman who presented with multiple complex medical issues, we will monitor the patient closely. Will initiate broad-spectrum IV antibiotics. Urology and infectious disease evaluations. Obtain cultures. Prognosis guarded because of multiple complex medical issues. Further recommendations to follow. Discussed with the patient and family. MMODL / JENNIFERN: [id number] / MTDD
--- NOTE | 2021-04-12 21:33 | P.GSCN ---
History of Present Illness Consult date: 04/12/21 Reason for Consult: prostatitis History of present illness: This is a 50 yo male that presents to the ED with lower abdominal pain, back pain and right testicular pain. On presentation patient was also febrile, and white count is 45.2. On presentation he underwent a scrotal ultrasound that showed possible epididymitis, but no evidence of an abscess. A CT abdomen and pelvis showed inflammatory changes along the right side of the prostate and the seminal vesicle. No evidence of prostatic abscess. He also been complaining of difficulty voiding and dysuria. Denies any similar symptoms in the past. No previous surgeries Review of Systems - Constitutional Reports chills, Reports fever - EENT Ears, nose, mouth and throat: Denies dysphagia - Cardiovascular Denies chest pain, Denies shortness of breath - Respiratory Denies cough, Denies 7 - Gastrointestinal Reports abdominal pain - Genitourinary Reports dysuria - Neurological Denies headaches, Denies syncope Past Medical History Past Medical History: COPD Additional Past Medical History / Comment(s): kidney disease,syncopal episode. History of Any Multi-Drug Resistant Organisms: None Reported Past Surgical History: No Surgical Hx Reported Past Anesthesia/Blood Transfusion Reactions: No Reported Reaction Past Psychological History: No Psychological Hx Reported Smoking Status: Current every day smoker Past Alcohol Use History: None Reported Past Drug Use History: Marijuana - Past Family History Father Family Medical History: Diabetes Mellitus Additional Family Medical History / Comment(s): "alcoholic" Mother Family Medical History: Congestive Heart Failure (CHF), COPD, Diabetes Mellitus, Renal Disease Additional Family Medical History / Comment(s): "high white count chronic",chronic uti, sleep apnea Sister(s) Family Medical History: Coronary Artery Disease (CAD) Medications and Allergies Home Medications Medication Instructions Recorded Confirmed Type No Known Home Medications 04/12/21 04/12/21 History Allergies Allergy/AdvReac Type Severity Reaction Status Date / Time amoxicillin Allergy Anaphylaxis Verified 04/12/21 15:39 Penicillins Allergy Anaphylaxis Verified 04/12/21 15:39 ZUCCHINI Allergy Anaphylaxis Uncoded 04/12/21 15:39 Surgical - Exam Vital Signs Temp Pulse Resp BP Pulse Ox 101.2 F H 108 H 20 147/72 99 04/12/21 11:28 04/12/21 11:28 04/12/21 11:28 04/12/21 11:28 04/12/21 11:28 - General no distress, moderate pain - Eyes normal ocular movement, no pale - ENT normal nares, normal mucosa - Respiratory normal expansion, normal respiratory effort - Abdomen Abdomen: soft, tender (Lower quadrant), no distended - Genitourinary testicles present, other (Right testicle tenderness) - Psychiatric oriented to time, oriented to person, oriented to place Results - Labs 04/12/21 14:00 04/12/21 14:00 Abnormal Lab Results - Last 24 Hours (Table) 04/12/21 04/12/21 04/12/21 Range/Units 14:00 14:00 14:07 WBC 45.9 H (3.8-10.6) k/uL RDW 15.7 H (11.5-15.5) % Neutrophils # 39.7 H (1.3-7.7) k/uL Monocytes # 2.4 H (0-1.0) k/uL Basophils # 0.4 H (0-0.2) k/uL Sodium 132 L (137-145) mmol/L Glucose 122 H (74-99) mg/dL Total Bilirubin 1.5 H (0.2-1.3) mg/dL Creatine Kinase 39 L (55-170) U/L Urine Protein 1+ H (Negative) Urine Ketones 1+ H (Negative) Urine Blood Large H (Negative) Ur Leukocyte Esterase Large H (Negative) Urine RBC 60 H (0-5) /hpf Urine WBC >182 H (0-5) /hpf Urine WBC Clumps Many H (None) /hpf Urine Bacteria Occasional H (None) /hpf Urine Mucus Rare H (None) /hpf Diabetes panel 04/12/21 Range/Units 14:00 Sodium 132 L (137-145) mmol/L Potassium 4.4 (3.5-5.1) mmol/L Chloride 99 (98-107) mmol/L Carbon Dioxide 23 (22-30) mmol/L BUN 14 (9-20) mg/dL Creatinine 0.89 (0.66-1.25) mg/dL Glucose 122 H (74-99) mg/dL Calcium 9.6 (8.4-10.2) mg/dL AST 23 (17-59) U/L ALT 18 (4-49) U/L Alkaline Phosphatase 79 (38-126) U/L Total Protein 6.7 (6.3-8.2) g/dL Albumin 3.9 (3.5-5.0) g/dL Calcium panel 04/12/21 Range/Units 14:00 Calcium 9.6 (8.4-10.2) mg/dL Albumin 3.9 (3.5-5.0) g/dL Pituitary panel 04/12/21 Range/Units 14:00 Sodium 132 L (137-145) mmol/L Potassium 4.4 (3.5-5.1) mmol/L Chloride 99 (98-107) mmol/L Carbon Dioxide 23 (22-30) mmol/L BUN 14 (9-20) mg/dL Creatinine 0.89 (0.66-1.25) mg/dL Glucose 122 H (74-99) mg/dL Calcium 9.6 (8.4-10.2) mg/dL Adrenal panel 04/12/21 Range/Units 14:00 Sodium 132 L (137-145) mmol/L Potassium 4.4 (3.5-5.1) mmol/L Chloride 99 (98-107) mmol/L Carbon Dioxide 23 (22-30) mmol/L BUN 14 (9-20) mg/dL Creatinine 0.89 (0.66-1.25) mg/dL Glucose 122 H (74-99) mg/dL Calcium 9.6 (8.4-10.2) mg/dL Total Bilirubin 1.5 H (0.2-1.3) mg/dL AST 23 (17-59) U/L ALT 18 (4-49) U/L Alkaline Phosphatase 79 (38-126) U/L Total Protein 6.7 (6.3-8.2) g/dL Albumin 3.9 (3.5-5.0) g/dL Assessment and Plan Assessment: This a 50-year-old male admitted to the hospital with acute prostatitis. On presentation patient was febrile in white count of 45.2. CT showed inflammatory changes along the prostate and the right seminal vesicle, patient currently on Levaquin -Continue Levaquin, infectious disease on board -I reviewed the CT I see no evidence of a prostatic abscess, we'll continue to monitor -Obtain a PVR -We'll start him on Toradol and flomax given his prostatitis
[2021-04-12] MEDS: HEPARIN SODIUM,PORCINE/PF 5,000 UNIT/0.5 ML SYRINGE SQ SCH (21:56)
[2021-04-12] MEDS: KETOROLAC 30 MG/ML 1 ML VIAL IVP SCH (23:32)
[2021-04-12] MEDS: SODIUM CHLORIDE 0.9% 1,000 ML IV SCH (23:36)
[2021-04-13] MEDS: KETOROLAC 30 MG/ML 1 ML VIAL IVP SCH ×3 (05:54→17:14)
[2021-04-13] MEDS: PANTOPRAZOLE 40 MG TABLET PO SCH (07:13)
[2021-04-13 09:16] LABS: HCT 43.7 % (39.6-50.0); HGB 14.1 g/dL (13.0-17.0); MCH 28.3 pg (27.0-32.0); MCHC 32.3 g/dL (32.0-37.0); MCV 87.8 fL (80.0-97.0); Mean Platelet Volume 9.2 fL (9.5-12.2); NRBC Per 100 WBC 0 /100 WBCS (0.0-0.0); Platelet Count 408 X 10*3/uL (140-440); RBC 4.98 X 10*6/uL (4.40-5.60); RDW 16.1 % (11.5-14.5); WBC 46.49 X 10*3/uL (4.50-10.00)
[2021-04-13 09:18] LABS: African American GFR (CKD) 117.8 (60.0-200.0); Albumin 3.6 g/dL (3.8-4.9); Albumin/Globulin Ratio 1.65 (1.60-3.17); Anion Gap 14.9 mmol/L (10.00-18.00); BUN/Creat Ratio 17.18 Ratio (12.00-20.00); Blood Urea Nitrogen 14.6 mg/dL (9.0-27.0); Calcium 9.5 mg/dL (8.7-10.3); Carbon Dioxide 18.7 mmol/L (20.0-27.5); Globulin 2.2 g/dL (1.6-3.3); Non-African American GFR(CKD) 101.6 (60.0-200.0); Potassium 4.5 mmol/L (3.5-5.5); Total Bilirubin 0.8 mg/dL (0.30-1.20); Total Protein 5.7 g/dL (6.2-8.2)
[2021-04-13] MEDS: HYDROcodone/APAP 5-325MG 1 EACH TAB PO PRN ×2 (09:47→20:08)
[2021-04-13] MEDS: TAMSULOSIN 0.4 MG CAP.ER.24H PO SCH (09:48)
[2021-04-13] MEDS: HEPARIN SODIUM,PORCINE/PF 5,000 UNIT/0.5 ML SYRINGE SQ SCH ×2 (09:48→20:08)
[2021-04-13 11:31] LABS: Basophils # (A) 0.12 X 10*3/uL (0.00-0.10); Basophils % (A) 0.3 %; Eosinophils # (A) 0.04 X 10*3/uL (0.04-0.35); Eosinophils % (A) 0.1 %; Immature Grans, Automated 1.5 %; Lymphocytes % (A) 7.1 %; Monocytes # (A) 3.61 X 10*3/uL (0.20-1.00); Monocytes % (A) 7.8 %; Neutrophils # (A) 38.71 X 10*3/uL (1.80-7.70); Neutrophils % (A) 83.2 %
--- NOTE | 2021-04-13 12:41 | P.PN ---
Subjective Progress Note Date: 04/13/21 No acute overnight event, pain is improving. afebrile this am Objective - Vital Signs Vital signs: Vital Signs Temp 97.9 F 04/13/21 08:00 Pulse 97 04/13/21 08:00 Resp 16 04/13/21 08:00 BP 161/85 04/13/21 08:00 Pulse Ox 96 04/13/21 08:00 Intake & Output 04/12/21 04/13/21 04/13/21 18:59 06:59 18:59 Weight 79.379 kg 79.379 kg Other: # Voids 2 # Bowel Movements 0 - Constitutional General appearance: Present: no acute distress - Genitourinary Genitourinary Comment(s): right testicle indurated, no cellulitis or abscess - Labs CBC & Chem 7: 04/13/21 04:19 04/13/21 04:19 Labs: Abnormal Lab Results - Last 24 Hours (Table) 04/12/21 04/12/21 04/12/21 Range/Units 14:00 14:00 14:07 WBC 45.9 H (3.8-10.6) k/uL RDW 15.7 H (11.5-15.5) % MPV (9.5-12.2) fL Immature Gran # (0.00-0.04) X 10*3/uL Neutrophils # 39.7 H (1.3-7.7) k/uL Monocytes # 2.4 H (0-1.0) k/uL Basophils # 0.4 H (0-0.2) k/uL Sodium 132 L (137-145) mmol/L Carbon Dioxide (20.0-27.5) mmol/L Glucose 122 H (74-99) mg/dL Total Bilirubin 1.5 H (0.2-1.3) mg/dL Creatine Kinase 39 L (55-170) U/L Total Protein (6.2-8.2) g/dL Albumin (3.8-4.9) g/dL Urine Protein 1+ H (Negative) Urine Ketones 1+ H (Negative) Urine Blood Large H (Negative) Ur Leukocyte Esterase Large H (Negative) Urine RBC 60 H (0-5) /hpf Urine WBC >182 H (0-5) /hpf Urine WBC Clumps Many H (None) /hpf Urine Bacteria Occasional H (None) /hpf Urine Mucus Rare H (None) /hpf 04/13/21 04/13/21 Range/Units 04:19 04:19 WBC 46.49 H (3.8-10.6) k/uL RDW 16.1 H (11.5-15.5) % MPV 9.2 L (9.5-12.2) fL Immature Gran # 0.71 H (0.00-0.04) X 10*3/uL Neutrophils # 38.71 H (1.3-7.7) k/uL Monocytes # 3.61 H (0-1.0) k/uL Basophils # 0.12 H (0-0.2) k/uL Sodium 134 L (137-145) mmol/L Carbon Dioxide 18.7 L (20.0-27.5) mmol/L Glucose (74-99) mg/dL Total Bilirubin (0.2-1.3) mg/dL Creatine Kinase (55-170) U/L Total Protein 5.7 L (6.2-8.2) g/dL Albumin 3.6 L (3.8-4.9) g/dL Urine Protein (Negative) Urine Ketones (Negative) Urine Blood (Negative) Ur Leukocyte Esterase (Negative) Urine RBC (0-5) /hpf Urine WBC (0-5) /hpf Urine WBC Clumps (None) /hpf Urine Bacteria (None) /hpf Urine Mucus (None) /hpf Microbiology - Last 24 Hours (Table) 04/12/21 14:07 Urine Culture - Preliminary Urine,Clean Catch Assessment and Plan Assessment: This a 50-year-old male admitted to the hospital with acute prostatitis. On presentation patient was febrile in white count of 45.2. CT showed inflammatory changes along the prostate and the right seminal vesicle, patient currently on Levaquin. improving this am, PVR 10 mL -Continue Levaquin, infectious disease on board -No acute surgical intervention, will continue to follow
--- NOTE | 2021-04-13 12:48 | PN ---
PROGRESS NOTE DATE OF SERVICE: 04/13/2021 This 50-year-old gentleman with significant epididymo-orchitis on the right side also had features of prostatitis and early sepsis. The patient is on broad-spectrum IV antibiotics. Patient is still complaining of pain and back pain also. Multiple consultants, including Urology, are following the patient closely. Cultures are pending at this time. Past medical history reviewed. REVIEW OF SYSTEMS: CARDIOVASCULAR SYSTEM: No angina. RESPIRATION: As mentioned earlier. GI: As mentioned earlier. : As mentioned earlier. CURRENT MEDICATIONS: Reviewed. They include Rocephin, Tylenol, Levaquin. Doses are reviewed. PHYSICAL EXAMINATION: Pulse 97, blood pressure 160/85, respiration 16, temperature 97.2, T-max 100.1. HEENT: Conjunctivae normal. NECK: No jugular venous distention. CARDIOVASCULAR: S1, S2 muffled. RESPIRATION: Breath sounds diminished at the bases. A few scattered rhonchi. ABDOMEN: Soft, nontender. No mass palpable. EXAMINATION OF THE RIGHT TESTICLE: Tender. Epididymis also tender and a large left varicocele present. LABS: WBC .49. ASSESSMENT: 1. Acute right epididymo-orchitis with acute prostatitis with sepsis, present on admission. 2. Leukocytosis. 3. Hyponatremia. 4. History of polycystic kidney disease. 5. Chronic obstructive pulmonary disease. RECOMMENDATIONS AND DISCUSSION: I recommend to continue current medications, continue with the monitoring, symptomatic treatment. Continue the broad-spectrum IV antibiotics. Follow the cultures. Repeat labs. See orders for further details. Prognosis guarded. Discussed with Infectious Disease. Follow closely with Urology. Discussed with the patient. MMODL / IJN: [id number] / FLORESITA
[2021-04-13] MEDS: LEVOFLOXACIN 750MG-D5W PMX 750 MG in DEXTROSE/WATER 1 150ML.BAG IVPB SCH (14:41)
[2021-04-13] MEDS: SODIUM CHLORIDE 0.9% 1,000 ML IV SCH (14:48)
[2021-04-14] MEDS: KETOROLAC 30 MG/ML 1 ML VIAL IVP SCH ×4 (00:05→17:33)
[2021-04-14] MEDS: HYDROcodone/APAP 5-325MG 1 EACH TAB PO PRN ×3 (02:49→14:19)
[2021-04-14] MEDS: PANTOPRAZOLE 40 MG TABLET PO SCH (07:25)
[2021-04-14] MEDS: TAMSULOSIN 0.4 MG CAP.ER.24H PO SCH (09:07)
[2021-04-14] MEDS: HEPARIN SODIUM,PORCINE/PF 5,000 UNIT/0.5 ML SYRINGE SQ SCH (09:09)
[2021-04-14 09:34] LABS: Basophils # (A) 0.04 X 10*3/uL (0.00-0.10); Basophils % (A) 0.2 %; Eosinophils # (A) 0.01 X 10*3/uL (0.04-0.35); Eosinophils % (A) 0 %; HCT 41.8 % (39.6-50.0); HGB 13.2 g/dL (13.0-17.0); Immature Grans, Automated 0.8 %; Lymphocytes % (A) 6.3 %; MCHC 31.6 g/dL (32.0-37.0); MCV 88.6 fL (80.0-97.0); Mean Platelet Volume 9.4 fL (9.5-12.2); Monocytes # (A) 1.55 X 10*3/uL (0.20-1.00); Monocytes % (A) 7.5 %; NRBC Per 100 WBC 0 /100 WBCS (0.0-0.0); Neutrophils # (A) 17.59 X 10*3/uL (1.80-7.70); Neutrophils % (A) 85.2 %; Platelet Count 344 X 10*3/uL (140-440); RBC 4.72 X 10*6/uL (4.40-5.60); RDW 16.1 % (11.5-14.5); WBC 20.65 X 10*3/uL (4.50-10.00)
--- NOTE | 2021-04-14 09:40 | P.PN ---
Subjective Progress Note Date: 04/14/21 The patient is in the hospital with an epididymal orchitis, right and a prostatitis. He was seen by yesterday. Nothing surgical needed to be done. He states that he feels better today. His white blood cell count was markedly elevated at 45,000 however the patient does admit to an evaluation for markedly elevated white count several years ago without identification of any leukemia. I do not have any other blood counts to compare this with. On examination there is an epididymal orchitis in particular the lower pole the right epididymis. Dates that he still a little bit better. There is no abscess formation palpable. The skin is unremarkable. He is afebrile. From urologic standpoint we'll discontinue with the antibiotic treatment. We will follow with you. Objective - Vital Signs Vital signs: Vital Signs Temp 99.3 F 04/14/21 08:00 Pulse 88 04/14/21 08:00 Resp 18 04/14/21 08:00 BP 130/70 04/14/21 08:00 Pulse Ox 96 04/14/21 08:00 Intake & Output 04/13/21 04/14/21 04/14/21 18:59 06:59 18:59 Intake Total 1080 Output Total 240 550 Balance 840 -550 Intake: Oral 1080 Output: Urine 240 550 Other: # Voids 2 1 # Bowel Movements 0 - Labs CBC & Chem 7: 04/14/21 03:17 04/13/21 04:19 Labs: Abnormal Lab Results - Last 24 Hours (Table) 04/13/21 04/14/21 Range/Units 04:19 03:17 WBC 20.65 H (4.50-10.00) X 10*3/uL MCHC 31.6 L (32.0-37.0) g/dL RDW 16.1 H (11.5-14.5) % MPV 9.4 L (9.5-12.2) fL Immature Gran # 0.71 H 0.16 H (0.00-0.04) X 10*3/uL Neutrophils # 38.71 H 17.59 H (1.80-7.70) X 10*3/uL Monocytes # 3.61 H 1.55 H (0.20-1.00) X 10*3/uL Eosinophils # 0.01 L (0.04-0.35) X 10*3/uL Basophils # 0.12 H (0.00-0.10) X 10*3/uL Microbiology - Last 24 Hours (Table) 04/12/21 14:07 Urine Culture - Preliminary Urine,Clean Catch Gram Neg Bacilli 04/12/21 15:15 Blood Culture - Preliminary Blood No Growth after 24 hours 04/12/21 15:30 Blood Culture - Preliminary Blood No Growth after 24 hours
[2021-04-14 09:58] LABS: African American GFR (CKD) 101.3 (60.0-200.0); Albumin 3.2 g/dL (3.8-4.9); Albumin/Globulin Ratio 1.6 (1.60-3.17); Anion Gap 11.2 mmol/L (10.00-18.00); BUN/Creat Ratio 17.4 Ratio (12.00-20.00); Blood Urea Nitrogen 17.4 mg/dL (9.0-27.0); Calcium 9.2 mg/dL (8.7-10.3); Carbon Dioxide 18.8 mmol/L (20.0-27.5); Non-African American GFR(CKD) 87.4 (60.0-200.0); Potassium 4.3 mmol/L (3.5-5.5); Total Bilirubin 0.6 mg/dL (0.30-1.20); Total Protein 5.2 g/dL (6.2-8.2)
--- NOTE | 2021-04-14 11:02 | P.CONS ---
History of Present Illness - Reason for Consult Consult date: 04/13/21 SEPSIS Requesting physician: Gerardo Elliott - Chief Complaint abd and scrotal pain x few days - History of Present Illness History of Present Illness : Patient is a 50-year-old male presenting to the ER yesterday afternoon for evaluation of body aches fever and lower abdominal pain the patient was complaining of having decreased bowel movements but has been passing gas patient also complaining of dark urine and has swelling of his right scrotal area along with pain that been going on for the last week or so patient describing the pain is currently to be sharp this is almost 10 out of 10 and no radiation with the center the patient was evaluated by the ER phy sician on arrival to the ER patient did have a fever of 101.2 F patient was tachycardic no hypoxemia or need for supplemental oxygen patient did have white count of 45.9 with repeat showing 46.49 that has prompted infectious disease consultation patient have a positive UA with large leukocyte esterase and many bacteria SARS-CoV-2 and influenza PCR was negative patient did have a CT of abdominal pelvis acute inflammatory changes are seen in the pelvis mainly surrounding asymmetrically large right seminal vesicle acute cystitis or prostatitis cannot be excluded patient also have a scrotal ultrasound which was unremarkable testicles with no evidence of testicular torsion or suspicious lesion mild symmetrical hyperemia of the epididymis bilaterally patient has been eval by urology who recommended medical treatment patient is currently on Levaquin because of his penicillin allergy infectious disease was consulted for further management of antibiotic therapy Review of system: CONSTITUTIONAL: Positive for weakness fever. EYES: No complaint. ENT: No complaint. RESPIRATORY: No complaint. CARDIOVASCULAR: No complaint. GENITOURINARY: As per history of present illness. GASTROINTESTINAL: As per history of present illness. MUSCULOSKELETAL: No complaint. INTEGUMENTARY : No complaint. PSYCHOLOGIC: No complaint. ENDOCRINE: No complaint. NEUROLOGIC: No complaint. Past medical history : Reviewed, documented below Past surgical history : Reviewed, documented below Social history: Reviewed, documented below Medications: Reviewed, as documented below EXAMINATION: Vital sigans= Reviewed and documented below GENERAL DESCRIPTION: Middle-aged male lying in bed, no distress. No tachypnea or accessory muscle of respiration use. HEENT: Shows Pallor , no scleral icterus. Oral mucous membrane is dry. NECK: Trachea central, no thyromegaly. LUNGS: Unlabored breathing. Clear to auscultation anteriorly. No wheeze or crackle. HEART: S1, S2, regular rate and rhythm. ABDOMEN: Soft, no tenderness , guarding or rigidity GENITOURINARY : Right testicular swelling and tenderness EXTREMITIES: No edema feet SKIN: No rash, no masses palpable. NEUROLOGICAL: The patient is awake, alert, oriented x3, mood and affect normal. LABS AND RADIOLOGY: Reviewed results see below Assessment : 1-Patient presented to hospital with sepsis in this patient did have a fever elevated white count sources genitourinary this patient did have evidence of UTI and right-sided epididymoorchitis likely from enteric gram- negative pathogen. 2patient with a penicillin allergy limiting number of antibiotics safe to use Plan: 1-we will add Rocephin 2 g IV Daily 2-gentle IV fluid We will follow on clinical condition and cultures to further adjust medication if needed Thank you for this consultation we will follow the patient along with you Past Medical History Past Medical History: COPD Additional Past Medical History / Comment(s): kidney disease,syncopal episode. History of Any Multi-Drug Resistant Organisms: None Reported Past Surgical History: No Surgical Hx Reported Past Anesthesia/Blood Transfusion Reactions: No Reported Reaction Past Psychological History: No Psychological Hx Reported Smoking Status: Current every day smoker Past Alcohol Use History: None Reported Past Drug Use History: Marijuana - Past Family History Father Family Medical History: Diabetes Mellitus Additional Family Medical History / Comment(s): "alcoholic" Mother Family Medical History: Congestive Heart Failure (CHF), COPD, Diabetes Mellitus, Renal Disease Additional Family Medical History / Comment(s): "high white count chronic",lunchroom worker [employer], sleep apnea Sister(s) Family Medical History: Coronary Artery Disease (CAD) Medications and Allergies Home Medications Medication Instructions Recorded Confirmed Type No Known Home Medications 04/12/21 04/12/21 History Allergies Allergy/AdvReac Type Severity Reaction Status Date / Time amoxicillin Allergy Anaphylaxis Verified 04/12/21 15:39 Penicillins Allergy Anaphylaxis Verified 04/12/21 15:39 [id number] Allergy Anaphylaxis Uncoded 04/12/21 15:39 Physical Exam Vitals: Vital Signs Temp Pulse Pulse Resp BP BP Pulse Ox 04/13/21 08:00 97.9 F 97 16 161/85 96 04/13/21 02:19 98.8 F 90 17 112/71 95 04/12/21 21:00 98.8 F 107 H 18 138/74 97 04/12/21 11:28 101.2 F H 108 H 20 147/72 99 Intake and Output 04/12/21 04/13/21 04/13/21 22:59 06:59 14:59 Other: # Voids 2 # Bowel Movements 0 Weight 79.379 kg Results CBC & Chem 7: 04/14/21 03:17 04/14/21 03:17 Labs: Abnormal Lab Results - Last 24 Hours (Table) 04/12/21 04/12/21 04/12/21 Range/Units 14:00 14:00 14:07 WBC 45.9 H (3.8-10.6) k/uL RDW 15.7 H (11.5-15.5) % MPV (9.5-12.2) fL Neutrophils # 39.7 H (1.3-7.7) k/uL Monocytes # 2.4 H (0-1.0) k/uL Basophils # 0.4 H (0-0.2) k/uL Sodium 132 L (137-145) mmol/L Carbon Dioxide (20.0-27.5) mmol/L Glucose 122 H (74-99) mg/dL Total Bilirubin 1.5 H (0.2-1.3) mg/dL Creatine Kinase 39 L (55-170) U/L Total Protein (6.2-8.2) g/dL Albumin (3.8-4.9) g/dL Urine Protein 1+ H (Negative) Urine Ketones 1+ H (Negative) Urine Blood Large H (Negative) Ur Leukocyte Esterase Large H (Negative) Urine RBC 60 H (0-5) /hpf Urine WBC >182 H (0-5) /hpf Urine WBC Clumps Many H (None) /hpf Urine Bacteria Occasional H (None) /hpf Urine Mucus Rare H (None) /hpf 04/13/21 04/13/21 Range/Units 04:19 04:19 WBC 46.49 H (3.8-10.6) k/uL RDW 16.1 H (11.5-15.5) % MPV 9.2 L (9.5-12.2) fL Neutrophils # (1.3-7.7) k/uL Monocytes # (0-1.0) k/uL Basophils # (0-0.2) k/uL Sodium 134 L (137-145) mmol/L Carbon Dioxide 18.7 L (20.0-27.5) mmol/L Glucose (74-99) mg/dL Total Bilirubin (0.2-1.3) mg/dL Creatine Kinase (55-170) U/L Total Protein 5.7 L (6.2-8.2) g/dL Albumin 3.6 L (3.8-4.9) g/dL Urine Protein (Negative) Urine Ketones (Negative) Urine Blood (Negative) Ur Leukocyte Esterase (Negative) Urine RBC (0-5) /hpf Urine WBC (0-5) /hpf Urine WBC Clumps (None) /hpf Urine Bacteria (None) /hpf Urine Mucus (None) /hpf Microbiology - Last 24 Hours (Table) 04/12/21 14:07 Urine Culture - Preliminary Urine,Clean Catch
[2021-04-14] MEDS ORDERED: CALCIUM CARBONATE 500 MG CHEWABLE PO PRN (12:51)
[2021-04-14] MEDS: DOCUSATE 100 MG CAP PO SCH (13:20)
[2021-04-14] MEDS: LORATADINE 10 MG TAB PO SCH (13:20)
[2021-04-14] MEDS: SODIUM CHLORIDE 0.9% 1,000 ML IV SCH (13:23)
[2021-04-14] MEDS: FLUTICASONE 50MCG/SPRAY NASAL 16GM EA NOSTRIL SCH (14:19)
--- NOTE | 2021-04-14 14:29 | P.PN ---
Subjective Progress Note Date: 04/14/21 This is a pleasant 50 male being treated for an acute prostatitis with urinary tract infection currently on IV Rocephin and IV Levaquin being followed closely by urology. Patient does state that the flank pain has improved today there is still some suprapubic tenderness. Reports a weak stream denies any burning or discomfort with urination. Patient does complain of some sinus congestion with a frontal headache radiating is 3 out of 10 that has been pretty constant. We'll recommend Claritin with Tylenol. Patient also complains of some midsternal chest discomfort describes as a burning sensation coming up from the stomach. We will also give him some Tums as needed as well as a PPI. White blood cell count improved today and is now 20.65, sodium 128. Bilirubin down to 0.60. Patient has followed with Gwen in the past for elevated WBC in the 40s, states that workup was inconclusive he thinks that he did see oncology for this as well and leukemia was ruled out. With low-grade fevers 99.3, blood pressure 130/70, 96% room air. ROS Constitutional: Denied any fatigue denied any fever. Cardio vascular: denied any chest pain, palpitations Gastrointestinal denied any nausea vomiting, reports reflux, reports flatus, no BM since Monday Pulmonary: Denied any shortness of breath cough Neurologic denied any new focal deficits All inpatient medications were reviewed and appropriate changes in these medications as dictated in the interval history and assessment and plan. PHYSICAL EXAMINATION: GENERAL: The patient is alert and oriented x3, not in any acute distress. Well developed, well nourished. HEENT: Pupils are round and equally reacting to light. EOMI. No scleral icterus. No conjunctival pallor. Normocephalic, atraumatic. No pharyngeal erythema. No thyromegaly. Sinus cavities tender to palpation. CARDIOVASCULAR: S1 and S2 present. No murmurs, rubs, or gallops. PULMONARY: Chest is clear to auscultation, no wheezing or crackles. ABDOMEN: Soft, suprapubic tenderness, nondistended, normoactive bowel sounds. No palpable organomegaly. Bilateral flank discomfort with palpation MUSCULOSKELETAL: No joint swelling or deformity. EXTREMITIES: No cyanosis, clubbing, or pedal edema. NEUROLOGICAL: Gross neurological examination did not reveal any focal deficits. SKIN: No rashes. Assessment and Plan Assessment Acute right epididymoorchitis with acute prostatitis with sepsis, present on admission Leukocytosis Hyponatremia Allergic rhinitis with sinusitis Constipation patient using narcotics for pain management, will add medications to promote BM. History of polycystic kidney disease Chronic obstructive pulmonary disease not acute exacerbation Reflux Chronic nicotine use GI Prophylaxis Protonix DVT Prophylaxis Subcu heparin FULL CODE Plan Continue antibiotics Claritin, flonase added IV fluids Bowel regimine Repeat CBC, BMP in AM Prognosis guarded Objective - Vital Signs Vital signs: Vital Signs Temp 99.3 F 04/14/21 08:00 Pulse 88 04/14/21 08:00 Resp 18 04/14/21 08:00 BP 130/70 04/14/21 08:00 Pulse Ox 96 04/14/21 08:00 Intake & Output 04/13/21 04/14/21 04/14/21 18:59 06:59 18:59 Intake Total 1080 Output Total 240 550 425 Balance 840 550 -425 Intake: Oral 1080 Output: Urine 240 550 425 Other: Voiding Method Urinal # Voids 2 1 # Bowel Movements 0 - Labs CBC & Chem 7: 04/14/21 03:17 04/14/21 03:17 Labs: Abnormal Lab Results - Last 24 Hours (Table) 04/14/21 04/14/21 Range/Units 03:17 03:17 WBC 20.65 H (4.50-10.00) X 10*3/uL MCHC 31.6 L (32.0-37.0) g/dL RDW 16.1 H (11.5-14.5) % MPV 9.4 L (9.5-12.2) fL Immature Gran # 0.16 H (0.00-0.04) X 10*3/uL Neutrophils # 17.59 H (1.80-7.70) X 10*3/uL Monocytes # 1.55 H (0.20-1.00) X 10*3/uL Eosinophils # 0.01 L (0.04-0.35) X 10*3/uL Sodium 128 L (135-145) mmol/L Carbon Dioxide 18.8 L (20.0-27.5) mmol/L Glucose 184 H (70-110) mg/dL Total Protein 5.2 L (6.2-8.2) g/dL Albumin 3.2 L (3.8-4.9) g/dL Microbiology - Last 24 Hours (Table) 04/12/21 14:07 Urine Culture - Preliminary Urine,Clean Catch Gram Neg Bacilli 04/12/21 15:15 Blood Culture - Preliminary Blood No Growth after 24 hours 04/12/21 15:30 Blood Culture - Preliminary Blood No Growth after 24 hours Assessment and Plan Time with Patient: Greater than 30
[2021-04-14] MEDS: LEVOFLOXACIN 750MG-D5W PMX 750 MG in DEXTROSE/WATER 1 150ML.BAG IVPB SCH (17:34)
[2021-04-15] MEDS: KETOROLAC 30 MG/ML 1 ML VIAL IVP SCH ×3 (00:21→11:26)
[2021-04-15] MEDS: HEPARIN SODIUM,PORCINE/PF 5,000 UNIT/0.5 ML SYRINGE SQ SCH ×2 (00:22→07:15)
[2021-04-15 01:38] VITALS: RESP 16
[2021-04-15] MEDS: SODIUM CHLORIDE 0.9% 1,000 ML IV SCH (04:00)
[2021-04-15] MEDS: LORATADINE 10 MG TAB PO SCH (07:13)
[2021-04-15] MEDS: PANTOPRAZOLE 40 MG TABLET PO SCH (07:14)
[2021-04-15] MEDS: HYDROcodone/APAP 5-325MG 1 EACH TAB PO PRN (07:14)
[2021-04-15] MEDS: DOCUSATE 100 MG CAP PO SCH (07:15)
[2021-04-15] MEDS: TAMSULOSIN 0.4 MG CAP.ER.24H PO SCH (07:15)
[2021-04-15] MEDS: FLUTICASONE 50MCG/SPRAY NASAL 16GM EA NOSTRIL SCH (07:16)
[2021-04-15 09:24] LABS: Basophils # (A) 0.06 X 10*3/uL (0.00-0.10); Basophils % (A) 0.4 %; Eosinophils # (A) 0.15 X 10*3/uL (0.04-0.35); Eosinophils % (A) 1.1 %; HCT 41.4 % (39.6-50.0); HGB 13.3 g/dL (13.0-17.0); Immature Grans, Automated 0.6 %; Lymphocytes # (A) 2.08 X 10*3/uL (0.90-5.00); Lymphocytes % (A) 15.6 %; MCH 27.9 pg (27.0-32.0); MCHC 32.1 g/dL (32.0-37.0); Mean Platelet Volume 9.3 fL (9.5-12.2); Monocytes # (A) 1.69 X 10*3/uL (0.20-1.00); Monocytes % (A) 12.7 %; NRBC Per 100 WBC 0 /100 WBCS (0.0-0.0); Neutrophils # (A) 9.28 X 10*3/uL (1.80-7.70); Neutrophils % (A) 69.6 %; Platelet Count 391 X 10*3/uL (140-440); RBC 4.76 X 10*6/uL (4.40-5.60); RDW 16.1 % (11.5-14.5); WBC 13.34 X 10*3/uL (4.50-10.00)
[2021-04-15 10:00] LABS: African American GFR (CKD) 120.7 (60.0-200.0); BUN/Creat Ratio 16.75 Ratio (12.00-20.00); Blood Urea Nitrogen 13.4 mg/dL (9.0-27.0); Calcium 8.6 mg/dL (8.7-10.3); Non-African American GFR(CKD) 104.2 (60.0-200.0); Potassium 4.2 mmol/L (3.5-5.5)
--- NOTE | 2021-04-15 12:32 | P.PN ---
Subjective No acute overnight event, pain is improving. afebrile this am, white count down to 13.3, urine cultures growing E. coli Objective - Vital Signs Vital signs: Vital Signs Temp 98.2 F 04/15/21 07:59 Pulse 82 04/15/21 07:59 Resp 16 04/15/21 07:59 BP 121/70 04/15/21 07:59 Pulse Ox 98 04/15/21 07:59 Intake & Output 04/14/21 04/15/21 04/15/21 18:59 06:59 18:59 Intake Total 1080 Output Total 425 300 300 Balance 655 -300 -300 Intake: Oral 1080 Output: Urine 425 300 300 Other: Voiding Method Urinal Urinal Urinal # Voids 3 - Constitutional General appearance: Present: no acute distress - Gastrointestinal General gastrointestinal: Present: soft, tenderness. Absent: distended - Psychiatric Psychiatric: Present: A&O x's 3 - Labs CBC & Chem 7: 04/15/21 05:34 04/15/21 05:34 Labs: Abnormal Lab Results - Last 24 Hours (Table) 04/15/21 04/15/21 Range/Units 05:34 05:34 WBC 13.34 H (4.50-10.00) X 10*3/uL RDW 16.1 H (11.5-14.5) % MPV 9.3 L (9.5-12.2) fL Immature Gran # 0.08 H (0.00-0.04) X 10*3/uL Neutrophils # 9.28 H (1.80-7.70) X 10*3/uL Monocytes # 1.69 H (0.20-1.00) X 10*3/uL Calcium 8.6 L (8.7-10.3) mg/dL Microbiology - Last 24 Hours (Table) 04/12/21 14:07 Urine Culture - Final Urine,Clean Catch Escherichia coli 04/12/21 15:15 Blood Culture - Preliminary Blood No Growth after 48 hours 04/12/21 15:30 Blood Culture - Preliminary Blood No Growth after 48 hours Assessment and Plan Assessment: This a 50-year-old male admitted to the hospital with acute prostatitis. On presentation patient was febrile in white count of 45.2. CT showed inflammatory changes along the prostate and the right seminal vesicle,. pain improving, white count down to 13. Patient remains afebrile. urine cultures growing E. coli, a infectious diseases on board -Recommend to continue antibiotics, he is okay for discharge from urology standpoint. can Follow-Up As an Outpatient in 2 Weeks
[2021-04-15 14:53] VITALS: BP 125/87; PULSE 83; TEMP 99
--- NOTE | 2021-04-17 21:36 | P.DS ---
Providers Date of admission: 04/12/21 15:52 Attending physician: Gerardo Elliott Consults: 04/12/21 15:46 Consult Physician Routine Consulting Provider: Jak Dwyer Consult Reason/Comments: uti Do you want consulting provider notified?: Yes 04/12/21 18:21 Consult Physician Routine Consulting Provider: Tabatha Quezada Consult Reason/Comments: sepsis Do you want consulting provider notified?: Yes Primary care physician: Stated None Hospital Course: Finished Diagnosis Acute right epididymoorchitis with acute prostatitis with sepsis, present on admission Leukocytosis Hyponatremia Allergic rhinitis with sinusitis History of polycystic kidney disease Chronic obstructive pulmonary disease not acute exacerbation Reflux Chronic nicotine use Discharge Disposition Patient stable for discharge cleared by ID and urology Hospital Course This is a pleasant 50 year old male who presents to the hospital with main complaints of abdominal pain over several days with associated fever and chills and body aches. Pain is in the lower abdominal area, patient also has been having decreased bowel movements and passing less gas. Patient also complains of right groin pain and right testicular pain that has been worsening. Past medical history includes COPD, kidney disease, syncopal episode, patient is a daily smoker, about 1 pack per day as well as marijuana use. Patient also has a past work up at [facility] for elevated WBC in the 40's and leukemia was ruled out at that time. Denies alcohol use. Abdominal pelvis CT shows acute inflammatory changes seen in the pelvus mainly surrounding the asymmetrically enlarged right seminal vessicle. Scrotum ultrasound shows no testicular torsion or suspicious lesion mild symmetrical hyperemia of the epididymis bilaterally. No hydrocele or varicocele noted. Labs on admission, WBC 45.9, sodium 132, potassium 4.4, total bilirubin 1.5, CK 39. Urinalysis suspicious for infection. Covid, flu and RSV negative. Patient evaluted by ID and urology. Urine culture finalized to E.Coli, blood cultures negative. Patient treat inpatient with IV levaquin and IV rocephin. 04/15/2021 Patient evaluated today resting in bed. He is passing gas, he had a small bowel movement today. Cultures finalized today and patient cleared by ID and urology for discharge. Patient will finish a course of oral cipro for 14 more days. Labs today show WBC count 13.34, sodium 137. Vitals signs reviewed, afebrile, heart rate 83, blood pressure 125/87, 96% on room air. Patient denies chest pain, chest pressure, shortness of breath, cough. States testicular pain is improving, no abdominal pain, no nausea, vomiting. He did complain today of some sinus congestion and frontal headache, and states he does usually take an allergy medication daily. Patient advised to take claritin and flonase daily for relief of symptoms. Lungs are clear, S1 and S2 auscultated, abdomen is soft and non tender. Patient currently does not have PCP, did refer to Dr Henderson on discharge, and patient will follow up with Dr Quezada and Dr dwyer on discharge as well. Repeat CBC to monitor white blood cell count. Please see medication reconciliation for a list of current medication. Thank you for allowing us to participate in the care of this patient. Patient Condition at Discharge: Stable Plan - Discharge Summary Discharge Rx Participant: No New Discharge Prescriptions: New Tamsulosin [Flomax] 0.4 mg PO DAILY #30 cap Fluticasone Nasal [place] [Flonase Nasal [place]] 2 spray EA NOSTRIL DAILY gm HYDROcodone/APAP 5-325MG [[place] 5-325] 1 each PO Q6HR PRN 3 Days #12 tab PRN Reason: Pain Ciprofloxacin HCl [Cipro] 500 mg PO Q12HR 14 Days #28 tab Loratadine [Claritin] 5 mg PO DAILY tab Docusate [Colace] 100 mg PO DAILY cap Discharge Medication List Ciprofloxacin HCl [Cipro] 500 mg PO Q12HR 14 Days #28 tab 04/15/21 [Rx] Docusate [Colace] 100 mg PO DAILY cap 04/15/21 [Rx] Fluticasone Nasal [place] [Flonase Nasal [place]] 2 spray EA NOSTRIL DAILY gm 04/15/21 [Rx] HYDROcodone/APAP 5-325MG [[place] 5-325] 1 each PO Q6HR PRN 3 Days #12 tab 04/15/21 [Rx] Loratadine [Claritin] 5 mg PO DAILY tab 04/15/21 [Rx] Tamsulosin [Flomax] 0.4 mg PO DAILY #30 cap 04/15/21 [Rx] Follow up Appointment(s)/Referral(s): Celena Henderson MD [REFERRING] - 1 Week (New Patient) Jak Dwyer MD [STAFF PHYSICIAN] - 04/27/21 9:40 am Tabatha Quezada MD [STAFF PHYSICIAN] - 04/26/21 1:30 pm Ambulatory/Diagnostic Orders: Complete Blood Count w/diff [LAB.AMB] Time Frame: 2 Days, Location: None Selected Patient Instructions/Handouts: Epididymitis (GEN) Activity/Diet/Wound Care/Special Instructions: Patient needs referral for PCP Discharge Disposition: HOME SELF-CARE
== END 2021-04-15 15:42 | disposition home or self-care (01) | DRG 872 ==
LOC: EC 11:02 → 4SSUR 15:52
PROVIDERS: ADMIT Hospitalist; ATTEND Hospitalist
DX: A41.51 Sepsis due to Escherichia coli [E. coli] (principal); E87.1 Hypo-osmolality and hyponatremia; N39.0 Urinary tract infection, site not specified; N41.0 Acute prostatitis; Q61.3 Polycystic kidney, unspecified; Z20.822 Contact with and (suspected) exposure to COVID-19; R31.9 Hematuria, unspecified; F17.210 Nicotine dependence, cigarettes, uncomplicated; J30.9 Allergic rhinitis, unspecified; J44.9 Chronic obstructive pulmonary disease, unspecified; K59.03 Drug induced constipation; N45.3 Epididymo-orchitis; T40.605A Adverse effect of unspecified narcotics, initial encounter; Z82.49 Family history of ischemic heart disease and other diseases of the circulatory system; K21.9 Gastro-esophageal reflux disease without esophagitis; Z82.5 Family history of asthma and other chronic lower respiratory diseases; Z83.3 Family history of diabetes mellitus; Z87.442 Personal history of urinary calculi; Z88.0 Allergy status to penicillin; Z88.1 Allergy status to other antibiotic agents; Z91.018 Allergy to other foods; X58.XXXA Exposure to other specified factors, initial encounter
CPT/HCPCS: 36415; 74177; 76870; 80048; 80053; 81001; 82550; 83605; 83690; 85025; 87040; 87077; 87086; 87186; 87636; 93975; 96365; 96366; 99285

== ENCOUNTER → 2021-04-17 | Outpatient (CLI) | payer BC ==
[2021-04-17 22:54] LABS: HCT 46.6 % (39.6-50.0); HGB 14.8 g/dL (13.0-17.0); MCH 27.5 pg (27.0-32.0); MCHC 31.8 g/dL (32.0-37.0); MCV 86.6 fL (80.0-97.0); Mean Platelet Volume 8.8 fL (9.5-12.2); NRBC Per 100 WBC 0 /100 WBCS (0.0-0.0); Platelet Count 442 X 10*3/uL (140-440); RBC 5.38 X 10*6/uL (4.40-5.60); RDW 17.1 % (11.5-14.5); WBC 18.82 X 10*3/uL (4.50-10.00)
[2021-04-17 23:48] LABS: Basophils % (A) 0.5 %; Eosinophils # (A) 0.31 X 10*3/uL (0.04-0.35); Eosinophils % (A) 1.6 %; Immature Grans, Automated 1.3 %; Lymphocytes # (A) 5.26 X 10*3/uL (0.90-5.00); Lymphocytes % (A) 27.9 %; Monocytes # (A) 2.24 X 10*3/uL (0.20-1.00); Monocytes % (A) 11.9 %; Neutrophils # (A) 10.67 X 10*3/uL (1.80-7.70); Neutrophils % (A) 56.8 %
== END | disposition home or self-care (01) ==
LOC: LABMAIN 15:58
PROVIDERS: ATTEND Internal Medicine
DX: N41.9 Inflammatory disease of prostate, unspecified (principal)
CPT/HCPCS: 85025

== ENCOUNTER → 2021-11-23 | Outpatient (CLI) | payer BC ==
--- NOTE | 2021-11-23 15:07 | US ---
EXAMINATION TYPE: US abdomen complete DATE OF EXAM: 11/23/2021 COMPARISON: CT abdomen and pelvis April 12, 2021 CLINICAL HISTORY: R10.12 LUQ abd pain. LUQ pain, epigastric pain, nausea and vomiting TECHNIQUE: Multiple sonographic images of the abdomen are obtained. FINDINGS: EXAM MEASUREMENTS: Liver Length: 16.3 cm Gallbladder Wall: 0.2 cm CBD: 0.5 cm Spleen: 7.2 cm Right Kidney: 10.7 x 4.4 x 5.4 cm Left Kidney: 10.3 x 5.3 x 4.7 cm Pancreas: limitations due to overlying bowel content, visualized portions appear fairly homogeneous Liver: wnl Gallbladder: no evidence of stones Evidence for sonographic Miguel's sign: no CBD: wnl Spleen: wnl Right Kidney: cystic areas noted, largest = 2.8 x 2.7 x 3.2cm Left Kidney: cystic areas noted, largest = 1.9cm Upper IVC: wnl Abd Aorta: wnl The liver is homogenous. The intrahepatic portion of the IVC and visualized proximal, mid, and dista l abdominal aorta are within normal limits. There is no evidence of cholelithiasis. Common bile devonte t is unremarkable. The visualized portions of the pancreas are homogenous. The spleen is unremarkab le. Kidneys are symmetric and free of hydronephrosis. Technologist monte a benign thin-walled 2.8 cm cyst in the right kidney. Superior exophytic 1.9 cm lesion right kidney favors debris-filled or hemo rrhagic cyst when correlating with CT, adjacent similar lesion on CT is not clearly seen on ultrasoun d. IMPRESSION: No acute findings evident to account for patient's symptoms of left upper quadrant and ep igastric pain.
== END | disposition home or self-care (01) ==
LOC: RADUSWWP 13:25
PROVIDERS: ATTEND Internal Medicine
DX: R10.12 Left upper quadrant pain (principal)
CPT/HCPCS: 76700